=== PATIENT | female | born 1960 | race Caucasian/White ===

== ENCOUNTER 2016-12-24 18:04 | Inpatient (IN) | payer BC ==
[~2016-12-24] VITALS: Ht 177.8 cm; Wt 125.0 kg
[2016-12-24] MEDS ORDERED: CEFTRIAXONE 1 GM/50 ML (PMX) 50 ML IVPB STA (23:08)
[2016-12-24] MEDS ORDERED: AZITHROMYCIN 500MG/NS (PMX) 250 ML IV STA (23:08)
[2016-12-24] MEDS ORDERED: SOD CHLORIDE 0.9% 1,000 ML IV STA (23:08)
--- NOTE | 2016-12-24 23:56 | RADRPT ---
PROCEDURE: XR Chest. CLINICAL INDICATION: Dyspnea. TECHNIQUE: Single frontal view of the chest. COMPARISON: None. FINDINGS: Cardiomegaly. Left suprahilar air space disease represents pneumonia, likely within the left upper l obe. The right lung is clear. No signs of pleural fluid or pneumothorax are seen. The osseous struct ures and soft tissues are unremarkable. IMPRESSION: Left upper lobe pneumonia. RPTAT: [facility] Physician Suresh Date Time Electronically viewed and signed by Physician Suresh on 12/24/2016 23:56 RS/
[2016-12-25] MEDS ORDERED: SOD CHLORIDE 0.9% 1,000 ML IV SCH (00:51)
[2016-12-25] MEDS ORDERED: ONDANSETRON 4 MG INJ IV PRN ×2 (01:00→20:00)
--- NOTE | 2016-12-25 01:00 | ERA ---
ER Documentation Chief Complaint Date/Time DATE: 12/25/16 TIME: 00:51 Chief Complaint sent by Dr Gunter due to DX of pneumonia HPI He is a 56-year-old female who is sent by her primary care physician Dr. Swift sent for admission for pneumonia. Patient had a cough for a week and she is failed outpatient antibiotic therapy. She saw her doctor today who got a chest x-ray that showed left upper lobe pneumonia and she was sent here. She says she has had some subjective fevers. No shortness of breath chest pain or nausea vomiting no abdominal pain. ROS All systems reviewed and are negative except as per history of present illness. PMhx/Soc History of Surgery: No Anesthesia Reaction: No Hx Neurological Disorder: No Hx Respiratory Disorders: No Hx Cardiac Disorders: No Hx Psychiatric Problems: No Hx Miscellaneous Medical Probl: Yes (RHEUMATOID ARTHRITIS) Hx Alcohol Use: No Hx Substance Use: No Hx Tobacco Use: No Smoking Status: Unknown if ever smoked FmHx Family History: No coronary disease Physical Exam Vitals Vital Signs Date Time Temp Pulse Resp B/P Pulse Ox O2 Delivery O2 Flow Rate FiO2 12/24/16 19:45 103.9 12/24/16 18:38 102.9 96 20 148/70 96 Physical Exam Const: Well-developed, well-nourished Head: Atraumatic, normocephalic Eyes: Normal Conjunctiva, PERRLA, EOMI, normal sclera, no nystagmus ENT: Normal External Ears, Nose and Mouth, moist mucus membranes. Neck: Full range of motion. No meningismus, no lymphadenopathy. Resp: Clear to auscultation bilaterally, no wheezing, rhonchi, rales Cardio: Regular rate and rhythm, no murmurs, S1 S2 present Abd: Soft, non tender x 4, non distended. Normal bowel sounds, no guarding or rebound, no pulsitile abdominal masses or bruits Skin: No petechiae or rashes, no ecchymosis , no maculopapular rash Back: No midline or flank tenderness Ext: No cyanosis, or edema, FROM x 4, normal inspection, neurovascularly intact x 4 Neur: Awake and alert, STR 5/5 x 4, sensation intact x 4, no focal findings, cerebellum intact Psych: Normal Mood and Affect Result Diagram: 10/18/17 2310 10/18/17 2310 Results 24 hrs Laboratory Tests Test 12/24/16 23:10 White Blood Count 11.110^3/ul Red Blood Count 3.5810^6/ul Hemoglobin 11.1g/dl Hematocrit 33.3% Mean Corpuscular Volume 93.0fl Mean Corpuscular Hemoglobin 31.0pg Mean Corpuscular Hemoglobin Concent 33.3g/dl Red Cell Distribution Width 14.3% Platelet Count 55182^3/UL Mean Platelet Volume 10.7fl Neutrophils % 72.0% Lymphocytes % 13.0% Monocytes % 11.9% Eosinophils % 2.0% Basophils % 0.5% Nucleated Red Blood Cells % 0.0/100WBC Neutrophils # 8.010^3/ul Lymphocytes # 1.410^3/ul Monocytes # 1.310^3/ul Eosinophils # 0.210^3/ul Basophils # 0.110^3/ul Nucleated Red Blood Cells # 0.010^3/ul Sodium Level 138mmol/L Potassium Level 3.6mmol/L Chloride Level 105mmol/L Carbon Dioxide Level 24mmol/L Anion Gap 13 Blood Urea Nitrogen 15mg/dl Creatinine 0.89mg/dl Glucose Level 99mg/dl Calcium Level 8.4mg/dl Total Bilirubin 0.3mg/dl Direct Bilirubin 0.00mg/dl Indirect Bilirubin 0.3mg/dl Aspartate Amino Transf (AST/SGOT) 23IU/L Alanine Aminotransferase (ALT/SGPT) 30IU/L Alkaline Phosphatase 124IU/L Total Protein 7.1g/dl Albumin 3.0g/dl Globulin 4.10g/dl Albumin/Globulin Ratio 0.73 Current Medications Medications (Trade) Dose Ordered Sig/Kerrie Route PRN Reason Start Time Stop Time Status Last Admin Dose Admin Sodium Chloride 1,000 ml @ 1,000 mls/hr Q1H STAT IV 12/24/16 23:08 12/25/16 00:07 DC 12/24/16 23:38 Azithromycin 250 ml @ 250 mls/hr ONCE STAT IV 12/24/16 23:08 12/25/16 00:07 DC 12/25/16 00:24 Ceftriaxone Sodium (Rocephin) 50 ml @ 100 mls/hr ONCE STAT IVPB 12/24/16 23:08 12/24/16 23:37 DC 12/24/16 23:38 Procedures/MDM PROCEDURE: XR Chest. CLINICAL INDICATION: Dyspnea. TECHNIQUE: Single frontal view of the chest. COMPARISON: None. FINDINGS: Cardiomegaly. Left suprahilar air space disease represents pneumonia, likely within the left upper lobe. The right lung is clear. No signs of pleural fluid or pneumothorax are seen. The osseous structures and soft tissues are unremarkable. IMPRESSION: Left upper lobe pneumonia. RPTAT: [facility] Physician Suresh Date Time Electronically viewed and signed by Lupillo Chu Physician on 12/24/2016 23:56 RS/ CC: NIKIA MELTON DO Patient had blood cultures antibiotics given Rocephin and Zithromax IV. Spoke with primary will admit for failed outpatient therapy with left upper lobe pneumonia. The patient is not septic and does not appear subclinically whatsoever Departure Diagnosis: Primary Impression: Left upper lobe pneumonia Qualified Code: J18.1 - Pneumonia of left upper lobe due to infectious organism Condition: Stable NIKIA MELTON DO Dec 25, 2016 01:00
[2016-12-25] MEDS: ACETAMINOPHEN 325 MG TAB PO PRN ×3 (02:12→15:30)
[2016-12-25] MEDS ORDERED: MET25 PO (03:37)
[2016-12-25] MEDS ORDERED: ACET-141 PO (03:37)
[2016-12-25 17:06] VITALS: TEMP 101.7
[2016-12-25 17:50] VITALS: BP 133/65; PULSE 76; RESP 16
[2016-12-25 18:01] VITALS: Ht 177.8 cm; Wt 125.0 kg
[2016-12-25] MEDS ORDERED: AZIT500T5 PO (18:10)
[2016-12-25] MEDS ORDERED: MAGNESIUM HYDROXIDE 30ML CUP PO PRN (19:30)
[2016-12-25] MEDS ORDERED: ZOLPIDEM 5 MG TAB PO PRN (19:30)
[2016-12-25 20:41] VITALS: BP 149/71; RESP 19
[2016-12-25] MEDS ORDERED: CEFTRIAXONE 1 GM/50 ML (PMX) 50 ML IVPB SCH (23:00)
--- NOTE | 2016-12-26 01:33 | PN ---
DATE: 12/25/2016 SUBJECTIVE: The patient admitted today from the emergency room where she spent the last 18 hours. The patient admitted because of pneumonia. The patient had been given Rocephin IV and feels better now, but she still has a severe nonproductive cough. OBJECTIVE: VITAL SIGNS: Temperature 102.6, blood pressure 149/72, pulse 70, respiratory rate 19, pulse ox 98 o n room air. GENERAL: Examination of the patient today reveals her to be improved. She is alert and awake. HEART: Normal sinus rhythm. LUNGS: Clear to A and P. ABDOMEN: Liver, kidneys, spleen are not palpable. Bowel sounds are normal. No intraabdominal mass es or bruits. EXTREMITIES: No ankle edema. LABORATORY DATA: CBC: White blood cell count 11,100, hemoglobin 12.3, hematocrit 31.3%, platelet c ount is normal, differential is normal. Sodium 138, potassium 3.6, chloride 105, carbon dioxide 24, BUN 15, creatinine 0.89, glucose 99, calcium normal. Alkaline phosphatase elevated at 124. Albumi n 3, globulin 4.1. A/G ratio 0.73. None of the cultures are back yet but blood culture has been or dered, urine cultures have been ordered, and sputum cultures have been ordered. Chest x-ray reveals left upper lobe pneumonia. ASSESSMENT AND PLAN: The patient has rheumatoid arthritis and is on methotrexate; however, the meth otrexate has been discontinued until her infection becomes under control. The patient had a similar episode of pneumonia when she was a child. She appears to be improving now on her treatment which is Rocephin 1 gram IV daily, awaiting for cultures. The patient had one episode of nausea and vomi ting; however, she felt it was simply due to coughing and she was choked from her coughing. She michel s not feel nauseous at this time and is feeling no pain. Dictated By: SUSY DILLON/LU Conf#: [id number] DID#: [id number]
[2016-12-26 02:18] VITALS: BP 126/61; RESP 18
[2016-12-26] MEDS: ACETAMINOPHEN 325 MG TAB PO PRN ×4 (02:19→23:55)
[2016-12-26 08:00] VITALS: BP 131/70; RESP 19
[2016-12-26 15:15] VITALS: BP 127/78
--- NOTE | 2016-12-26 16:55 | RADRPT ---
Vent Rate: 58 bpm RR Interval: 0 msec MS Interval: 154 msec QRS Duration: 74 msec QT Interval: 430 msec QTC Interval: 422 msec P-R-T [place]: 62 - 50 - 72 degrees Sinus bradycardia Otherwise normal ECG Electronically Signed By: Curry Sood [id number]
--- NOTE | 2016-12-26 16:55 | RADRPT ---
Vent Rate: 58 bpm RR Interval: 0 msec IA Interval: 154 msec QRS Duration: 74 msec QT Interval: 430 msec QTC Interval: 422 msec P-R-T [place]: 62 - 50 - 72 degrees Sinus bradycardia Otherwise normal ECG Electronically Signed By: Curry Sood [id number]
--- NOTE | 2016-12-26 16:55 | RADRPT ---
Vent Rate: 58 bpm RR Interval: 0 msec OR Interval: 154 msec QRS Duration: 74 msec QT Interval: 430 msec QTC Interval: 422 msec P-R-T [place]: 62 - 50 - 72 degrees Sinus bradycardia Otherwise normal ECG Electronically Signed By: Curry Sood [id number]
[2016-12-26 17:44] VITALS: BP 124/75; RESP 18
--- NOTE | 2016-12-26 18:06 | RADRPT ---
PROCEDURE: XR Chest. CLINICAL INDICATION: Shortness of breath. TECHNIQUE: Single frontal view. COMPARISON: 12/24/2016. FINDINGS: There is air space disease in the left upper lobe consistent with pneumonia. A mass lesion at this s ite cannot be excluded. The right lung is clear. The heart is enlarged. There is no pleural effusion. There is no pneumothorax. IMPRESSION: 1. Unchanged left upper lobe pneumonia. 2. A left lung mass cannot be excluded. Correlation with CT scan of the chest should be considered. 3. Cardiomegaly. RPTAT: QQ .Bernardo Limon MD, MD Date Time Electronically viewed and signed by .Bernardo Limon MD, MD on 12/26/2016 18:05 .R/
[2016-12-26 20:02] VITALS: BP 131/78; RESP 20
--- NOTE | 2016-12-26 20:09 | HP ---
DATE OF ADMISSION: 12/25/2016 CHIEF COMPLAINT: Cough and fever with left anterior chest pain x10 days. HISTORY OF PRESENT ILLNESS: The patient was seen in the office on 12/19/2016 with complaint of coug h and fever and some chest pain in the left anterior chest. She was placed on Zithromax and given s ome cough medicine consisting of Phenergan with codeine. The patient called back on 12/24/2016 comp laining that she felt no better. By now she had been coughing for 2 weeks. She was seen in the off ice. She was febrile, running a fever over 101. Chest x-ray was performed and this revealed left u pper lobe pneumonia. The patient was then referred to the hospital and was seen in the emergency ro om of [facility] and admitted. FAMILY HISTORY: Mother of carcinoma of the lung and brain at age 59. Father at 82 of ang iodysplasia of the colon. The patient has 1 brother and 1 sister, both of whom are alive and well. Mother had brain carcinoma and carcinoma of the lung. No other history in the family of carc inoma. No family history of tuberculosis or diabetes mellitus. SOCIAL HISTORY: The patient does not smoke and uses alcoholic beverages very moderately. PAST HISTORY: Serious accidents: None. Serious illnesses: The patient has rheumatoid arthritis for which she is being treated by her adjunct psychology faculty member with methotrexate and folic acid. PREVIOUS SURGERIES: None. DRUGS AND MEDICATIONS: 1. Methotrexate. 2. Folic acid. ALLERGIES: NO KNOWN DRUG ALLERGIES. REVIEW OF SYSTEMS: CARDIOVASCULAR: No history of hypertension. No history of congenital heart disease, rheumatic feve r, valvular heart disease, arrhythmia, coronary insufficiency, myocardial infarction, or angina pect maria dolores. RESPIRATORY: The patient presents with pneumonia. She also had pneumonia at age 7. No history of tuberculosis or asthma. GASTROINTESTINAL: No history of peptic ulcer disease, cholecystitis, hepatitis, jaundice, pancreati tis, ileitis, colitis, hematemesis, or melena. MUSCULOSKELETAL: The patient has had several fractured toes, but no other broken bones; however, sh kody does have rheumatoid arthritis for which he is being treated with methotrexate. NEUROLOGICAL: No history of epilepsy, convulsion or CVA. No history of emotional disorder. GENITOURINARY: No history of cystitis, glomerulonephritis, pyelonephritis, or other genital tract d isorder. PHYSICAL EXAMINATION: GENERAL: The patient is a well-developed, slightly obese white female who appears to be acutely ill . VITAL SIGNS: Blood pressure 147/82, pulse 90, respirations 16, temperature 101.8. SKIN: No evidence of dermatitis. NECK: Supple. Thyroid is not palpable. HEENT: Head is symmetrical with no evidence of injury or deformity. Ears, nose and throat: Nasal and pharyngeal mucosa is red. Ears are clear. Eyes: PERRLA, EOM normal. Disks flat. Peripheral and forward vision grossly intact. Ears, nose and throat as described previously. HEART: PMI left fifth interspace, left midclavicular line. No murmurs, no thrills, no bruits. A2 is greater than P2. No distention of jugular veins. No ankle edema. Hepatojugular reflux is not p resent. CHEST: Clear to A and P. ABDOMEN: Liver, kidneys, and spleen are not palpable. Bowel sounds are normal. There are no intra abdominal masses or bruits. GENITOURINARY, PELVIC AND RECTAL: Deferred. The patient had pelvic and rectal February 2016 with n egative result. MUSCULOSKELETAL: No evidence of deformity or injury to the musculoskeletal system. NEUROLOGIC: DTRs are normal and equal bilaterally including biceps, triceps, wrists, knees, and ank les. Plantars are flexor and no pathological reflexes are present. The patient is well oriented to time, place, and person. PERIPHERAL VASCULAR: No carotid or subclavian artery bruits. Femoral and dorsal pedal pulses are n ormal and equal bilaterally. LYMPHATICS: No evidence of lymphadenopathy. IMPRESSION: 1. Left upper lobe pneumonia. 2. Rheumatoid arthritis, being treated with methotrexate. 3. Fever. 4. History of renal insufficiency. 5. Fibrocystic disease of both breasts. Dictated By: SUSY DILLON/LU Conf#: [id number] DID#: [id number]
[2016-12-26] MEDS: CEFEPIME 1GM/50 ML (PMX) 50 ML IVPB SCH (20:53)
[2016-12-26] MEDS: PROMETHAZINE/CODEINE 5ML CUP PO PRN (23:58)
[2016-12-27] MEDS ORDERED: BARIUM SULF 2% 450 ML BTL (BERRY SMOOTHIE) PO ONE (01:30)
[2016-12-27 02:16] VITALS: BP 118/77; RESP 18
--- NOTE | 2016-12-27 02:19 | CONS ---
DATE OF ADMISSION: 12/25/2016 DATE OF CONSULTATION: 12/26/2016 TYPE OF CONSULTATION: Infectious Disease. REASON FOR CONSULTATION: Antibiotic management. HISTORY OF PRESENT ILLNESS: Mary Lou Azevedo is a 56-year-old female, a patient of Dr. Leonel tinsley who has been sick for the last 2 weeks. She had a cough for a week and then came to see Dr. Dionna bernal last Thursday; he put her on Z-Luis Angel for 5 days, but when she came back to see him on the to get a chest x-ray it showed left upper lobe pneumonia and she was sent in to the hospital for evalu ation. PAST PROBLEMS INCLUDE: Rheumatoid arthritis. VITAL SIGNS: On admission, her temperature was 103.9, white count was 11.1, H and H of 11.1 and 33. 3, platelet count 318,000. BUN and creatinine 15/0.89. PAST MEDICAL HISTORY: Operations: None. FAMILY HISTORY: Noncontributory. SOCIAL HISTORY: She does not smoke, drink or abuse drugs. ALLERGIES: NONE TO PENICILLIN, SULFA OR FOODS. MEDICATIONS: Per chart. REVIEW OF SYSTEMS: As per HPI. PHYSICAL EXAMINATION: GENERAL: The patient is a well-developed, well-nourished female who is alert, responsive, in no acu te distress. VITAL SIGNS: Stable. Her T-max was 103.9, she currently is febrile to 102.5 and was 102.6 yesterda y as well as 103.9 on the . SKIN: Without generalized rash. HEENT: Within normal limits. NECK: Supple. LYMPH NODES: None palpable. CHEST: Decreased breath sounds at the bases. HEART: Without murmur or gallop. ABDOMEN: Soft and nontender, without organosplenomegaly or masses. EXTREMITIES: Without cyanosis, clubbing, or edema. RECTAL AND GENITAL: Exam is deferred. NEUROLOGICAL: No focal neurological abnormality. IMPRESSION AND PLAN: Patient had blood cultures x4. She has had an MRSA screen, respiratory cultur e, urine culture, AFB culture and smear. I do not believe this is AFB; I believe it is a pneumoniti s, maybe aspiration. Blood cultures negative. Urine cultures are negative so far. I am going to s witch her over to cefepime a gram q.12. I will dictate my findings to Dr. Mayfield. Dictated By: LUIZ BARAHONA MD, JD/LU Conf#: [id number] DID#: [id number]
--- NOTE | 2016-12-27 03:38 | PN ---
DATE: 12/26/2016 SUBJECTIVE: The patient is alert and awake. She feels somewhat better; however, she is still runni ng a fever of 102. EARS, NOSE AND THROAT: Clear. LUNGS: Clear to A and P. HEART: Normal sinus rhythm. No murmur, no enlargement. ABDOMEN: Liver, kidneys, spleen are not palpable. Bowel sounds are normal. The patient is no long er nauseated or vomiting. There was no ankle edema. There is no nuchal rigidity; however, the patient continues to have fevers going from just barely ab ove normal to 102. This patient was on a trip to the [facility] and out of the country in October. T he possibility of some exotic disease must be entertained but since she has not responded to antibio tics in over a week, we shall obtain a thick and thin smear for falciparum malaria although this is highly unlikely. VITAL SIGNS: Temperature today went from 98.8 to 102. Blood pressure is 124/75. Pulse is 68. Res piratory rate is 18. Pulse ox is 99% on room air. DIAGNOSTIC DATA: White blood cell count is 9200, hemoglobin is 10.4, hematocrit is 31.9%, platelet count is normal, neutrophils 69.6%, lymphocytes at 13.6%, monocytes elevated at 1.3%. Sed rate is 7 9 mm/hr. Electrolytes revealed a sodium of 139, potassium 4.1, chloride 106, carbon dioxide 23, BUN 14, creatinine 0.95. Calcium is 8.1 uncorrected. Liver function tests are normal; however, A/G ra rodolfo is reversed. Albumin is 2.9, globulin is 3.6. The possibility of multiple myeloma is entertained and a serum protein electrophoresis will be obtai isidro. Her cholesterol was low at 72. Thyroid is normal. Urine shows a trace of ketones and is othe rwise negative. TB skin test is pending. Urine culture shows no growth after 24 hours. Blood cult ure shows no growth after 24 hours x2. IMAGING: Repeat chest x-ray today reveals unchanged left upper lobe pneumonia. A left lung mass ca nnot be excluded. Correlation with CT scan of the chest should be considered and will be ordered. The patient also has cardiomegaly. Dr. Vargas will see the patient in infectious diseases consultation. Dictated By: SUSY DILLON/LU Conf#: [id number] [facility]#: [id number]
[2016-12-27] MEDS: CIPROFLOXACIN 500 MG TAB PO SCH ×2 (05:38→18:09)
[2016-12-27 08:00] VITALS: BP 136/69; RESP 19
[2016-12-27] MEDS: CEFEPIME 1GM/50 ML (PMX) 50 ML IVPB SCH ×2 (09:51→20:48)
[2016-12-27] MEDS: ACETAMINOPHEN 325 MG TAB PO PRN ×2 (11:04→20:47)
--- NOTE | 2016-12-27 12:28 | PN ---
Date/Time of Note Date/Time of Note DATE: 12/27/16 TIME: 12:19 Assessment/Plan VTE Prophylaxis VTE Prophylaxis Intervention: ambulation Lines/Catheters IV [facility] Saline Lock Urinary Cath still in place: No Assessment/Plan Assessment/Plan CLOTILDE pneumonia. r/o mass cxr cannot r/o mass so ct pending today. pt on iv abx and cont to have tempt. ppd placed. ID following. will start xopenex hhn . anemia-fe deficient. will start fe. Subjective 24 Hr Interval Summary Free Text/Dictation febrile during the night max 101.8. pt feeling good today. awake and alert. Exam/Review of Systems Vital Signs Vitals Vital Signs Date Time Temp Pulse Resp B/P Pulse Ox O2 Delivery O2 Flow Rate FiO2 12/27/16 08:00 100.3 69 19 136/69 90 12/26/16 17:44 Room Air 12/25/16 17:06 2.0 Intake and Output 12/26/16 12/26/16 12/27/16 15:00 23:00 07:00 Intake Total 730 ml 350 ml Balance 730 ml 350 ml Exam lungs cta Results Result Diagram: 12/27/16 0540 12/26/16 0526 Results 24 hrs Laboratory Tests Test 12/27/16 05:39 12/27/16 05:40 12/27/16 05:41 Iron Level 16 L Total Iron Binding Capacity 189 L Percent Iron Saturation 8 L White Blood Count 7.5 Red Blood Count 3.56 L Hemoglobin 10.7 L Hematocrit 33.1 L Mean Corpuscular Volume 93.0 Mean Corpuscular Hemoglobin 30.1 Mean Corpuscular Hemoglobin Concent 32.3 Red Cell Distribution Width 14.2 Platelet Count 310 Mean Platelet Volume 10.7 H Neutrophils % 63.7 Lymphocytes % 17.9 Monocytes % 14.0 H Eosinophils % 2.9 Basophils % 0.7 Nucleated Red Blood Cells % 0.0 Neutrophils # 4.8 Lymphocytes # 1.3 Monocytes # 1.1 H Eosinophils # 0.2 Basophils # 0.1 Nucleated Red Blood Cells # 0.0 Ferritin 357.0 H Vitamin B12 Level 353 Absolute Reticulocyte Count 0.032 Percent Reticulocyte Count 0.9 Medications Medications Current Medications Acetaminophen (Tylenol Tab) 650 mg Q4H PRN PO PAIN AND OR ELEVATED TEMP Last administered on 12/27/16 11:04; Admin Dose 650 MG; Start 12/25/16 at 19:30 Zolpidem Tartrate (Ambien) 10 mg HS PRN PO INSOMNIA; Start 12/25/16 at 19:30 Magnesium Hydroxide (Milk Of Mag) 30 ml DAILY PRN PO CONSTIPATION; Start 12/25 at 19:30 Promethazine HCl/ Codeine (Phenergan/ Codeine) 5 ml Q4H PRN PO COUGH Last administered on 12/26/16 23:58; Admin Dose 5 ML; Start 12/25/16 at 19:30 Ondansetron HCl (Zofran Inj) 4 mg Q4H PRN IV NAUSEA AND/OR VOMITING Last administered on 12/25/16 20:55; Admin Dose 4 MG; Start 12/25/16 at 20:00 Clonidine 0.1 mg 0.1 mg Q4H PRN NGT SBP>160 or DBP>90 Last administered on 16:12; Admin Dose 0.1 MG; Start 12/26/16 at 16:00 Cefepime HCl (Maxipime 1gm/50 ml (Pmx)) 50 ml @ 100 mls/hr Q12 IVPB Last administered on 12/27/16 09:51; Admin Dose 100 MLS/HR; Start 12/26/16 at 21: 00 Ciprofloxacin (Cipro) 500 mg BID@06,18 PO Last administered on 12/27/16 05:38 ; Admin Dose 500 MG; Start 12/27/16 at 06:00; Stop 01/05/17 at 05:59 FARIBA OSEGUERA MD Dec 27, 2016 12:28
--- NOTE | 2016-12-27 13:12 | CONS ---
Date/Time of Note Date/Time of Note DATE: 12/27/16 TIME: 13:09 Assessment/Plan Assessment/Plan Additional Assessment/Plan CLOTILDE PNA R/O TB ATYPICAL PLEURITIC CHEST PAIN -continue abx -TB work up -very atypical chest pain and unlikely cardaic -will cehck echo Consultation Date/Type/Reason Admit Date/Time Dec 25, 2016 at 00:51 Hx of Present Illness He is a 56-year-old female who is sent by her primary care physician Dr. Swift sent for admission for pneumonia. Patient had a cough for a week and she is failed outpatient antibiotic therapy. She saw her doctor today who got a chest x-ray that showed left upper lobe pneumonia and she was sent here. She says she has had some subjective fevers. No shortness of breathor nausea vomiting no abdominal pain. She had some chest pain that was somehwat pleruitic, no exertional symtpmos and hemodyncmiallcly stable Social History Smoking Status: Never smoker Exam/Review of Systems Vital Signs Vitals Vital Signs Date Time Temp Pulse Resp B/P Pulse Ox O2 Delivery O2 Flow Rate FiO2 12/27/16 08:00 100.3 69 19 136/69 90 12/26/16 17:44 Room Air 12/25/16 17:06 2.0 Intake and Output 12/26/16 12/26/16 12/27/16 15:00 23:00 07:00 Intake Total 730 ml 350 ml Balance 730 ml 350 ml Results Result Diagram: 12/27/16 0540 12/26/16 0526 Results 24 hrs Laboratory Tests Test 12/27/16 05:39 12/27/16 05:40 12/27/16 05:41 Iron Level 16 L Total Iron Binding Capacity 189 L Percent Iron Saturation 8 L White Blood Count 7.5 Red Blood Count 3.56 L Hemoglobin 10.7 L Hematocrit 33.1 L Mean Corpuscular Volume 93.0 Mean Corpuscular Hemoglobin 30.1 Mean Corpuscular Hemoglobin Concent 32.3 Red Cell Distribution Width 14.2 Platelet Count 310 Mean Platelet Volume 10.7 H Neutrophils % 63.7 Lymphocytes % 17.9 Monocytes % 14.0 H Eosinophils % 2.9 Basophils % 0.7 Nucleated Red Blood Cells % 0.0 Neutrophils # 4.8 Lymphocytes # 1.3 Monocytes # 1.1 H Eosinophils # 0.2 Basophils # 0.1 Nucleated Red Blood Cells # 0.0 Ferritin 357.0 H Vitamin B12 Level 353 Absolute Reticulocyte Count 0.032 Percent Reticulocyte Count 0.9 Medications Medications Current Medications Acetaminophen (Tylenol Tab) 650 mg Q4H PRN PO PAIN AND OR ELEVATED TEMP Last administered on 12/27/16 11:04; Admin Dose 650 MG; Start 12/25/16 at 19:30 Zolpidem Tartrate (Ambien) 10 mg HS PRN PO INSOMNIA; Start 12/25/16 at 19:30 Magnesium Hydroxide (Milk Of Mag) 30 ml DAILY PRN PO CONSTIPATION; Start 12/25 at 19:30 Promethazine HCl/ Codeine (Phenergan/ Codeine) 5 ml Q4H PRN PO COUGH Last administered on 12/26/16 23:58; Admin Dose 5 ML; Start 12/25/16 at 19:30 Ondansetron HCl (Zofran Inj) 4 mg Q4H PRN IV NAUSEA AND/OR VOMITING Last administered on 12/25/16 20:55; Admin Dose 4 MG; Start 12/25/16 at 20:00 Clonidine 0.1 mg 0.1 mg Q4H PRN NGT SBP>160 or DBP>90 Last administered on 16:12; Admin Dose 0.1 MG; Start 12/26/16 at 16:00 Cefepime HCl (Maxipime 1gm/50 ml (Pmx)) 50 ml @ 100 mls/hr Q12 IVPB Last administered on 12/27/16 09:51; Admin Dose 100 MLS/HR; Start 12/26/16 at 21: 00 Ciprofloxacin (Cipro) 500 mg BID@06,18 PO Last administered on 12/27/16 05:38 ; Admin Dose 500 MG; Start 12/27/16 at 06:00; Stop 01/05/17 at 05:59 Ferrous Sulfate (Feosol Liquid Cup) 150 mg DAILY PO ; Start 12/27/16 at 12:30 STEVE HANNA MD Dec 27, 2016 13:12
[2016-12-27] MEDS: FERROUS SULFATE 60 MG/ML 5ML CUP PO SCH (13:20)
[2016-12-27 14:00] VITALS: BP 113/67; RESP 18
[2016-12-27] MEDS: LEVALBUTEROL (NEB) 0.31 MG/3 ML AMP HHN SCH ×2 (14:14→20:35)
--- NOTE | 2016-12-27 20:04 | RADRPT ---
PROCEDURE: CT Chest without contrast. CLINICAL INDICATION: Shortness of breath. History of left upper lobe pneumonia. Possible mass at t his site. TECHNIQUE: Helical axial sections were obtained through the chest without intravenous contrast enh ancement. Coronal and sagittal reformatted images were obtained from the axial source images. Total exam DLP is 606.47 mGy-cm. CTDIvol is 16.00 mGy. One or more of the following dose reduction yovani hniques were used: Automated exposure control, adjustment of the mA and/or kV according to patient s ize, use of iterative reconstruction technique. COMPARISON: Chest x-ray dated 12/26/2016. FINDINGS: There is dense consolidation in the left upper lobe anteriorly with no air bronchograms indicating a possible mass at this site measuring 6.5 x 6.2 cm in AP and transverse dimensions. There is adjacen t patchy consolidation of the left upper lobe consistent with pneumonia. There are small regions of bronchiolitis in the right upper lobe laterally and right lung base as well as the left lower lobe s uperiorly and posteriorly. There is no pulmonary nodule or mass lesion. There is left middle mediastinal lymphadenopathy adjacent to the left main pulmonary artery measurin g 2.1 x 1.3 cm. There is no other mediastinal or hilar lymphadenopathy or mass. There is no axillary, supraclavicular, or internal mammary lymphadenopathy. The thoracic aorta is not dilated. The heart size is normal. There is no right pleural effusion. There is a very small left pleural effusion. There is no pericar dial effusion. Images through the upper abdomen demonstrate normal visualized portions of the liver, spleen, and ad renals. There are degenerative changes of the spine. There is no fracture or lytic lesion. IMPRESSION: 1. Possible mass in the left upper lobe anteriorly measuring 6.5 x 6.2 cm. Correlation with broncho scopy should be considered. 2. Patchy consolidation in the left upper lobe consistent with pneumonia. 3. Small regions of bronchiolitis bilaterally. 4. Left middle mediastinal lymphadenopathy measuring 2.1 x 1.3 cm, reactive or neoplastic. 5. Very small left pleural effusion. 6. Degenerative changes of the spine. RPTAT: QQ .Bernardo Limon MD, Date Time Electronically viewed and signed by .Bernardo Limon MD, on 12/27/2016 20:04 .R/
[2016-12-27 20:24] VITALS: BP 131/88; RESP 18
--- NOTE | 2016-12-27 21:52 | CONS ---
Date/Time of Note Date/Time of Note DATE: 12/27/16 TIME: 21:46 Consult Date/Type/Reason Admit Date/Time Dec 25, 2016 at 00:51 Initial Consult Date Type of Consultation: ID Objective Vital Signs Date Time Temp Pulse Resp B/P Pulse Ox O2 Delivery O2 Flow Rate FiO2 12/27/16 20:36 76 18 94 21 12/27/16 20:24 100.2 131/88 12/26/16 17:44 Room Air 12/25/16 17:06 2.0 Intake and Output 12/26/16 12/26/16 12/27/16 15:00 23:00 07:00 Intake Total 730 ml 350 ml Balance 730 ml 350 ml Results/Medications Result Diagram: 12/27/16 0540 12/26/16 0526 Results 24 hrs Laboratory Tests Test 12/27/16 05:39 12/27/16 05:40 12/27/16 05:41 Iron Level 16 L Total Iron Binding Capacity 189 L Percent Iron Saturation 8 L White Blood Count 7.5 Red Blood Count 3.56 L Hemoglobin 10.7 L Hematocrit 33.1 L Mean Corpuscular Volume 93.0 Mean Corpuscular Hemoglobin 30.1 Mean Corpuscular Hemoglobin Concent 32.3 Red Cell Distribution Width 14.2 Platelet Count 310 Mean Platelet Volume 10.7 H Neutrophils % 63.7 Lymphocytes % 17.9 Monocytes % 14.0 H Eosinophils % 2.9 Basophils % 0.7 Nucleated Red Blood Cells % 0.0 Neutrophils # 4.8 Lymphocytes # 1.3 Monocytes # 1.1 H Eosinophils # 0.2 Basophils # 0.1 Nucleated Red Blood Cells # 0.0 Ferritin 357.0 H Vitamin B12 Level 353 Absolute Reticulocyte Count 0.032 Percent Reticulocyte Count 0.9 Medications Current Medications Acetaminophen (Tylenol Tab) 650 mg Q4H PRN PO PAIN AND OR ELEVATED TEMP Last administered on 12/27/16t 20:47; Admin Dose 650 MG; Start 12/25/16 at 19:30 Zolpidem Tartrate (Ambien) 10 mg HS PRN PO INSOMNIA; Start 12/25/16 at 19:30 Magnesium Hydroxide (Milk Of Mag) 30 ml DAILY PRN PO CONSTIPATION; Start 12/25 at 19:30 Promethazine HCl/ Codeine (Phenergan/ Codeine) 5 ml Q4H PRN PO COUGH Last administered on 12/26/16 23:58; Admin Dose 5 ML; Start 12/25/16 at 19:30 Ondansetron HCl (Zofran Inj) 4 mg Q4H PRN IV NAUSEA AND/OR VOMITING Last administered on 12/25/16 20:55; Admin Dose 4 MG; Start 12/25/16 at 20:00 Clonidine 0.1 mg 0.1 mg Q4H PRN NGT SBP>160 or DBP>90 Last administered on 16:12; Admin Dose 0.1 MG; Start 12/26/16 at 16:00 Cefepime HCl (Maxipime 1gm/50 ml (Pmx)) 50 ml @ 100 mls/hr Q12 IVPB Last administered on 12/27/16 20:48; Admin Dose 100 MLS/HR; Start 12/26/16 at 21: 00 Ciprofloxacin (Cipro) 500 mg BID@06,18 PO Last administered on 12/27/16 18:09 ; Admin Dose 500 MG; Start 12/27/16 at 06:00; Stop 01/05/17 at 05:59 Ferrous Sulfate (Feosol Liquid Cup) 150 mg DAILY PO Last administered on 13:20; Admin Dose 150 MG; Start 12/27/16 at 12:30 Assessment/Plan Chief Complaint/Hosp Course Alert, feels good, no fevers AbxL Cefepime, Cipro GENERAL: The patient is a well-developed, well-nourished female who is alert, responsive, in no acute distress. SKIN: Without generalized rash. HEENT: Within normal limits. NECK: Supple. LYMPH NODES: None palpable. CHEST: Decreased breath sounds at the bases. HEART: Without murmur or gallop. ABDOMEN: Soft and nontender, without organosplenomegaly or masses. EXTREMITIES: Without cyanosis, clubbing, or edema. NEUROLOGICAL: No focal neurological abnormality. Assessment: 1. PNA 2. ?L upper lobe mass per CT 3. RA 4. Anemia Plan: Clinically stable, continue Cefepime, dc Cipro, consider pulmonary eval ? bronch DW staff Problems: PARAM LEON NP Dec 27, 2016 21:52
[2016-12-28] MEDS: ACETAMINOPHEN 325 MG TAB PO PRN ×2 (00:54→09:08)
[2016-12-28] MEDS: PROMETHAZINE/CODEINE 5ML CUP PO PRN (00:54)
[2016-12-28 02:07] VITALS: BP 121/70; RESP 18
[2016-12-28 07:43] VITALS: BP 125/79; RESP 19
[2016-12-28] MEDS: LEVALBUTEROL (NEB) 0.31 MG/3 ML AMP HHN SCH ×2 (08:31→19:58)
[2016-12-28] MEDS ORDERED: FERROUS GLUCONATE (EC) 325 MG TAB PO SCH (09:00)
[2016-12-28] MEDS: FERROUS SULFATE 60 MG/ML 5ML CUP PO SCH (09:08)
[2016-12-28] MEDS: CEFEPIME 1GM/50 ML (PMX) 50 ML IVPB SCH ×2 (09:08→21:19)
--- NOTE | 2016-12-28 10:31 | RADRPT ---
Echocardiogram Report Patient Name: DEONDRE BOYKIN Gender: Female Date: 1960 Study Date: 27-Dec-2016 Assistant Financial Accountant: BLANCA Location: 2257 Ref. Physician: STEVE HANNA Quality: Good Procedures: Transthoracic echocardiogram with complete 2D, M-Mode, and doppler examination. Indications: Chest Pain. 2D/M Mode Doppler Measurement Value Normal Ranges Measurement Value Normal Ranges AoR Diam MM 3.2 cm JING Vmax 2.0 cm2 ACS MM 2.0 cm JING VTI 2.0 cm2 LA/Ao MM 1.1 AV Peak Tyrel 1.4 m/sec LA Dimen MM 3.4 cm AV Peak PG 8.2 mmHg LVIDd 2D 5.0 3.5 - 5.6 cm LVOT Peak Tyrle 1.0 m/sec LVIDs 2D 3.4 2.1 - 4.1 cm LVOT Peak PG 3.7 mmHg LVPWd 2D 1.1 0.6 - 1.1 cm MV E Peak Tyrel 0.5 m/sec IVSd 2D 1.1 0.6 - 1.1 cm MV A Peak Tyrel 0.7 m/sec EDV 2D 117.5 cm3 MV E/A 0.7 ESV 2D 39.0 cm3 MV Decel Time 321 msec EF 2D 60.0 50.0 - 65.0 % MV Decel [place] 2 LVOT Diam 2.0 cm MV E/A 0.7 TR Peak Tyrel 2.4 m/sec TR Peak PG 22.8 mmHg RVSP 26.0 mmHg RA Pressure 3.0 Findings Left Ventricle: Normal left ventricular systolic function. Normal left ventricular cavity size. Normal left ventricular wall thickness. Ejection fraction is visually estimated at 60 %. Right Ventricle: Normal right ventricular size. Normal right ventricular systolic function. Left Atrium: The left atrium is normal in size. Right Atrium: The right atrium is normal in size. Atrial Septum: Not well visualized. Mitral Valve: Normal appearance of the mitral valve. Normal appearance and function of the mitral valve with trace physiologic regurgitation. Aortic Valve: Normal appearance of the aortic valve. No significant aortic stenosis or insufficiency. Normal trileaflet aortic valve structure. Tricuspid Valve: Normal appearance of the tricuspid valve. Normal appearance and function of the tricuspid valve with trace physiologic regurgitation. Normal right ventricular systolic pressure. Estimated peak PA systolic pressure 26 mmHg. Pulmonic Valve: Normal pulmonic valve appearance. There is trace pulmonic regurgitation. Pericardium: Normal pericardium with no significant pericardial effusion. Aorta: Normal aortic root. IVC: The IVC is not well visualized due to body habitus. Conclusions 1.Normal appearance of the tricuspid valve. Normal appearance and function of the tricuspid valve with trace physiologic regurgitation. Normal right ventricular systolic pressure. Estimated peak PA systolic pressure 26 mmHg. 2.Normal left ventricular systolic function. Normal left ventricular cavity size. Normal left ventricular wall thickness. Ejection fraction is visually estimated at 60 %. 3.Normal right ventricular size. Normal right ventricular systolic function. Electronically Signed By: Lee Encinas 28-Dec-2016 10:30:14 -0700 Patient Name: DEONDRE BOYKIN Study Date: 27-Dec-2016 [id number]
--- NOTE | 2016-12-28 10:31 | RADRPT ---
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 Physician: STEVE HANNA Quality: Good Procedures: Transthoracic echocardiogram with complete 2D, M-Mode, and doppler examination. Indications: Chest Pain. 2D/M Mode Doppler Measurement Value Normal Ranges Measurement Value Normal Ranges AoR Diam MM 3.2 cm JING Vmax 2.0 cm2 ACS MM 2.0 cm JING VTI 2.0 cm2 LA/Ao MM 1.1 AV Peak Tyrel 1.4 m/sec LA Dimen MM 3.4 cm AV Peak PG 8.2 mmHg LVIDd 2D 5.0 3.5 - 5.6 cm LVOT Peak Tyrel 1.0 m/sec LVIDs 2D 3.4 2.1 - 4.1 cm LVOT Peak PG 3.7 mmHg LVPWd 2D 1.1 0.6 - 1.1 cm MV E Peak Tyrel 0.5 m/sec IVSd 2D 1.1 0.6 - 1.1 cm MV A Peak Tyrel 0.7 m/sec EDV 2D 117.5 cm3 MV E/A 0.7 ESV 2D 39.0 cm3 MV Decel Time 321 msec EF 2D 60.0 50.0 - 65.0 % MV Decel [place] 2 LVOT Diam 2.0 cm MV E/A 0.7 TR Peak Tyrel 2.4 m/sec TR Peak PG 22.8 mmHg RVSP 26.0 mmHg RA Pressure 3.0 Findings Left Ventricle: Normal left ventricular systolic function. Normal left ventricular cavity size. Normal left ventricular wall thickness. Ejection fraction is visually estimated at 60 %. Right Ventricle: Normal right ventricular size. Normal right ventricular systolic function. Left Atrium: The left atrium is normal in size. Right Atrium: The right atrium is normal in size. Atrial Septum: Not well visualized. Mitral Valve: Normal appearance of the mitral valve. Normal appearance and function of the mitral valve with trace physiologic regurgitation. Aortic Valve: Normal appearance of the aortic valve. No significant aortic stenosis or insufficiency. Normal trileaflet aortic valve structure. Tricuspid Valve: Normal appearance of the tricuspid valve. Normal appearance and function of the tricuspid valve with trace physiologic regurgitation. Normal right ventricular systolic pressure. Estimated peak PA systolic pressure 26 mmHg. Pulmonic Valve: Normal pulmonic valve appearance. There is trace pulmonic regurgitation. Pericardium: Normal pericardium with no significant pericardial effusion. Aorta: Normal aortic root. IVC: The IVC is not well visualized due to body habitus. Conclusions 1.Normal appearance of the tricuspid valve. Normal appearance and function of the tricuspid valve with trace physiologic regurgitation. Normal right ventricular systolic pressure. Estimated peak PA systolic pressure 26 mmHg. 2.Normal left ventricular systolic function. Normal left ventricular cavity size. Normal left ventricular wall thickness. Ejection fraction is visually estimated at 60 %. 3.Normal right ventricular size. Normal right ventricular systolic function. Electronically Signed By: Lee Encinas 28-Dec-2016 10:30:14 -0700 Patient Name: DEONDRE BOYKIN Study Date: 27-Dec-2016 [id number]
--- NOTE | 2016-12-28 10:31 | RADRPT ---
Echocardiogram Report Patient Name: DEONDRE BOYKIN Gender: Female Date: 1960 Study Date: 27-Dec-2016 Magistrate Assistant: BLANCA Location: 2257 Ref. Physician: STEVE HANNA Quality: Good Procedures: Transthoracic echocardiogram with complete 2D, M-Mode, and doppler examination. Indications: Chest Pain. 2D/M Mode Doppler Measurement Value Normal Ranges Measurement Value Normal Ranges AoR Diam MM 3.2 cm JING Vmax 2.0 cm2 ACS MM 2.0 cm JING VTI 2.0 cm2 LA/Ao MM 1.1 AV Peak Tyrel 1.4 m/sec LA Dimen MM 3.4 cm AV Peak PG 8.2 mmHg LVIDd 2D 5.0 3.5 - 5.6 cm LVOT Peak Tyrel 1.0 m/sec LVIDs 2D 3.4 2.1 - 4.1 cm LVOT Peak PG 3.7 mmHg LVPWd 2D 1.1 0.6 - 1.1 cm MV E Peak Tyrel 0.5 m/sec IVSd 2D 1.1 0.6 - 1.1 cm MV A Peak Tyrel 0.7 m/sec EDV 2D 117.5 cm3 MV E/A 0.7 ESV 2D 39.0 cm3 MV Decel Time 321 msec EF 2D 60.0 50.0 - 65.0 % MV Decel [place] 2 LVOT Diam 2.0 cm MV E/A 0.7 TR Peak Tyrel 2.4 m/sec TR Peak PG 22.8 mmHg RVSP 26.0 mmHg RA Pressure 3.0 Findings Left Ventricle: Normal left ventricular systolic function. Normal left ventricular cavity size. Normal left ventricular wall thickness. Ejection fraction is visually estimated at 60 %. Right Ventricle: Normal right ventricular size. Normal right ventricular systolic function. Left Atrium: The left atrium is normal in size. Right Atrium: The right atrium is normal in size. Atrial Septum: Not well visualized. Mitral Valve: Normal appearance of the mitral valve. Normal appearance and function of the mitral valve with trace physiologic regurgitation. Aortic Valve: Normal appearance of the aortic valve. No significant aortic stenosis or insufficiency. Normal trileaflet aortic valve structure. Tricuspid Valve: Normal appearance of the tricuspid valve. Normal appearance and function of the tricuspid valve with trace physiologic regurgitation. Normal right ventricular systolic pressure. Estimated peak PA systolic pressure 26 mmHg. Pulmonic Valve: Normal pulmonic valve appearance. There is trace pulmonic regurgitation. Pericardium: Normal pericardium with no significant pericardial effusion. Aorta: Normal aortic root. IVC: The IVC is not well visualized due to body habitus. Conclusions 1.Normal appearance of the tricuspid valve. Normal appearance and function of the tricuspid valve with trace physiologic regurgitation. Normal right ventricular systolic pressure. Estimated peak PA systolic pressure 26 mmHg. 2.Normal left ventricular systolic function. Normal left ventricular cavity size. Normal left ventricular wall thickness. Ejection fraction is visually estimated at 60 %. 3.Normal right ventricular size. Normal right ventricular systolic function. Electronically Signed By: Lee Encinas 28-Dec-2016 10:30:14 -0700 Patient Name: DEONDRE BOYKIN Study Date: 27-Dec-2016 [id number]
--- NOTE | 2016-12-28 11:38 | PN ---
Date/Time of Note Date/Time of Note DATE: 12/28/16 TIME: 11:35 Assessment/Plan VTE Prophylaxis VTE Prophylaxis Intervention: ambulation Lines/Catheters IV [facility]ter Type (from [email or web address] Saline Lock Urinary Cath still in place: No Assessment/Plan Assessment/Plan CLOTILDE pneumonia. r/o mass cxr cannot r/o mass so ct pending today. pt on day # 2 cefepime and cont to have tempt. ppd placed. ID following. will start xopenex hhn . ---ct show CLOTILDE pneumonia with mediastinal LN's and possible mass. will consult pulm for eval. pt still having high fevers. anemia-fe deficient. will start fe. Exam/Review of Systems Vital Signs Vitals Vital Signs Date Time Temp Pulse Resp B/P Pulse Ox O2 Delivery O2 Flow Rate FiO2 12/28/16 10:24 101.2 12/28/16 08:31 71 18 93 21 12/28/16 07:43 125/79 12/26/16 17:44 Room Air 12/25/16 17:06 2.0 Intake and Output 12/27/16 12/27/16 12/28/16 15:00 23:00 07:00 Intake Total 50 ml 950 ml 300 ml Balance 50 ml 950 ml 300 ml Results Result Diagram: 12/27/16 0540 12/26/16 0526 Medications Medications Current Medications Acetaminophen (Tylenol Tab) 650 mg Q4H PRN PO PAIN AND OR ELEVATED TEMP Last administered on 12/28/16 09:08; Admin Dose 650 MG; Start 12/25/16 at 19:30 Zolpidem Tartrate (Ambien) 10 mg HS PRN PO INSOMNIA; Start 12/25/16 at 19:30 Magnesium Hydroxide (Milk Of Mag) 30 ml DAILY PRN PO CONSTIPATION; Start 12/25 at 19:30 Promethazine HCl/ Codeine (Phenergan/ Codeine) 5 ml Q4H PRN PO COUGH Last administered on 12/28/16 00:54; Admin Dose 5 ML; Start 12/25/16 at 19:30 Ondansetron HCl (Zofran Inj) 4 mg Q4H PRN IV NAUSEA AND/OR VOMITING Last administered on 12/25/16 20:55; Admin Dose 4 MG; Start 12/25/16 at 20:00 Clonidine 0.1 mg 0.1 mg Q4H PRN NGT SBP>160 or DBP>90 Last administered on 16:12; Admin Dose 0.1 MG; Start 12/26/16 at 16:00 Cefepime HCl (Maxipime 1gm/50 ml (Pmx)) 50 ml @ 100 mls/hr Q12 IVPB Last administered on 12/28/16 09:08; Admin Dose 100 MLS/HR; Start 12/26/16 at 21: 00 Ferrous Sulfate (Feosol Liquid Cup) 150 mg DAILY PO Last administered on 09:08; Admin Dose 150 MG; Start 12/27/16 at 12:30 FARIBA OSEGUERA MD Dec 28, 2016 11:38
[2016-12-28 14:18] VITALS: BP 110/64; RESP 16
--- NOTE | 2016-12-28 14:52 | PN ---
DATE: 12/28/2016 SUBJECTIVE: The patient feels significantly better than yesterday, although she continues to have i ntermittent fevers. She denies chest pain or shortness of breath at this time. PHYSICAL EXAMINATION VITAL SIGNS: Temperature 101.2, pulse 71, blood pressure 125/79, oxygen saturation 93%. NECK: No jugular venous distention. LUNGS: Clear. CARDIAC: Regular rate and rhythm. ABDOMEN: Soft, nontender. EXTREMITIES: Reveal no edema. LABORATORY RESULTS: Not performed today. The patient is being treated for possible right upper lobe pneumonia, as well as possible mass. We w ill defer evaluation of CT findings to primary team. Echocardiogram revealed a preserved ejection f raction. Dictated By: KRISTY RUST/LU Conf#: [id number] DID#: [id number]
--- NOTE | 2016-12-28 15:25 | CONS ---
Date/Time of Note Date/Time of Note DATE: 12/28/16 TIME: 15:13 Assessment/Plan Assessment/Plan Chief Complaint/Hosp Course Assessment/Plan Chief Complaint/Hosp Course Alert. Awake. High Fever episode of 102.2 today. No Acute Distress. Vital Signs: T-98.8 BP- 110/64 HR- 78 RR-16 O2Sat- 94% Abx: Cefepime GENERAL: The patient is a well-developed, well-nourished female who is alert, responsive, in no acute distress. SKIN: Without generalized rash. HEENT: Within normal limits. NECK: Supple. LYMPH NODES: None palpable. CHEST: Decreased breath sounds at the bases. HEART: Without murmur or gallop. ABDOMEN: Soft and nontender, without organosplenomegaly or masses. EXTREMITIES: Without cyanosis, clubbing, or edema. NEUROLOGICAL: No focal neurological abnormality. Assessment: 1. PNA 2. ?L upper lobe mass per CT 3. RA 4. Anemia 5. Fever 6. Rule Out Tuberculosis Plan: Obtain AFB cultures. Obtain Blood cultures. Continue Antibiotics. Monitor Respiratory Status. Problems: Consultation Date/Type/Reason Admit Date/Time Dec 25, 2016 at 00:51 Initial Consult Date Type of Consultation: ID Exam/Review of Systems Vital Signs Vitals Vital Signs Date Time Temp Pulse Resp B/P Pulse Ox O2 Delivery O2 Flow Rate FiO2 12/28/16 14:18 98.0 78 16 110/64 94 12/28/16 08:31 21 12/26/16 17:44 Room Air 12/25/16 17:06 2.0 Intake and Output 12/27/16 12/27/16 12/28/16 15:00 23:00 07:00 Intake Total 50 ml 950 ml 300 ml Balance 50 ml 950 ml 300 ml Results Result Diagram: 12/27/16 0540 12/26/16 0526 Medications Medications Current Medications Acetaminophen (Tylenol Tab) 650 mg Q4H PRN PO PAIN AND OR ELEVATED TEMP Last administered on 12/28/16t 09:08; Admin Dose 650 MG; Start 12/25/16 at 19:30 Zolpidem Tartrate (Ambien) 10 mg HS PRN PO INSOMNIA; Start 12/25/16 at 19:30 Magnesium Hydroxide (Milk Of Mag) 30 ml DAILY PRN PO CONSTIPATION; Start 12/25 at 19:30 Promethazine HCl/ Codeine (Phenergan/ Codeine) 5 ml Q4H PRN PO COUGH Last administered on 12/28/16 00:54; Admin Dose 5 ML; Start 12/25/16 at 19:30 Ondansetron HCl (Zofran Inj) 4 mg Q4H PRN IV NAUSEA AND/OR VOMITING Last administered on 12/25/16 20:55; Admin Dose 4 MG; Start 12/25/16 at 20:00 Clonidine 0.1 mg 0.1 mg Q4H PRN NGT SBP>160 or DBP>90 Last administered on 16:12; Admin Dose 0.1 MG; Start 12/26/16 at 16:00 Cefepime HCl (Maxipime 1gm/50 ml (Pmx)) 50 ml @ 100 mls/hr Q12 IVPB Last administered on 12/28/16 09:08; Admin Dose 100 MLS/HR; Start 12/26/16 at 21: 00 Ferrous Sulfate (Feosol Liquid Cup) 150 mg DAILY PO Last administered on 09:08; Admin Dose 150 MG; Start 12/27/16 at 12:30 AN RAMESH NP Dec 28, 2016 15:23
[2016-12-28 20:36] VITALS: BP 135/74; RESP 16
[2016-12-29 02:36] VITALS: BP 129/72; RESP 16
[2016-12-29] MEDS: ACETAMINOPHEN 325 MG TAB PO PRN ×2 (02:37→20:03)
[2016-12-29] MEDS: LEVALBUTEROL (NEB) 0.31 MG/3 ML AMP HHN SCH ×2 (07:59→20:55)
[2016-12-29 08:12] VITALS: BP 136/62; RESP 20
[2016-12-29] MEDS: FERROUS SULFATE 60 MG/ML 5ML CUP PO SCH (09:06)
[2016-12-29] MEDS: CEFEPIME 1GM/50 ML (PMX) 50 ML IVPB SCH ×2 (09:06→20:55)
[2016-12-29 12:30] VITALS: BP 128/67; PULSE 68; RESP 17
[2016-12-29] MEDS: FLUCONAZOLE 200 MG TAB PO SCH (15:22)
--- NOTE | 2016-12-29 16:01 | CONS ---
Date/Time of Note Date/Time of Note DATE: 12/29/16 TIME: 15:45 Consultation Date/Type/Reason Admit Date/Time Dec 25, 2016 at 00:51 Initial Consult Date SUBJECTIVE: 56 y/o female being treated for PNA. Possible Lt upper lobe Lung mass. States that feeling OK. Alert. Awake. High Fever episode of 102.2 today. No Acute Distress. Vital Signs: T-98.0 BP- 136/62 HR- 66 R:20 O2Sat- 96% Earlier today temp was 102.9. LABS: WBC-9.3 H&H: 11.1/33.2 AFB SMEAR Final ACID FAST BACILLI NONE SEEN Blood Cultures x4=NEG. Stool is NEG for C.Diff. Sputum Culture =NEG. Abx: Cefepime GENERAL: The patient is a well-developed, well-nourished female who is alert, responsive, in no acute distress. SKIN: Without generalized rash. HEENT: Within normal limits. NECK: Supple. LYMPH NODES: None palpable. CHEST: Decreased breath sounds at the bases. HEART: Without murmur or gallop. ABDOMEN: Soft and nontender, without organosplenomegaly or masses. EXTREMITIES: Without cyanosis, clubbing, or edema. NEUROLOGICAL: No focal neurological abnormality. Assessment: 1. PNA 2. ?L upper lobe mass per CT 3. RA 4. Anemia 5. Fever 6. Rule Out Tuberculosis Plan: Continue Diflucan and Cefepime. Monitor Respiratory Status. Awaiting Pulm. team for eval. of possible mass per CT. Dr. Lawson has been notified. Problems: Type of Consultation: ID Exam/Review of Systems Vital Signs Vitals Vital Signs Date Time Temp Pulse Resp B/P Pulse Ox O2 Delivery O2 Flow Rate FiO2 12/29/16 08:12 98.0 66 20 136/62 96 12/29/16 08:00 21 12/26/16 17:44 Room Air 12/25/16 17:06 2.0 Intake and Output 12/28/16 12/28/16 12/29/16 15:00 23:00 07:00 Intake Total 50 ml 1070 ml 950 ml Balance 50 ml 1070 ml 950 ml Results Result Diagram: 12/29/16 0449 12/26/16 0526 Results 24 hrs Laboratory Tests Test 12/28/16 22:10 12/29/16 04:49 TB Skin Test Induration Pending TB Skin Test Administer Date [id number] TB Skin Test Administer Time 2209 TB Skin Test Injection Site Right Upper Forearm White Blood Count 9.3 # Red Blood Count 3.59 L Hemoglobin 11.1 L Hematocrit 33.2 L Mean Corpuscular Volume 92.5 Mean Corpuscular Hemoglobin 30.9 Mean Corpuscular Hemoglobin Concent 33.4 Red Cell Distribution Width 14.2 Platelet Count 390 # Mean Platelet Volume 10.8 H Neutrophils % 66.2 Lymphocytes % 15.1 Monocytes % 14.9 H Eosinophils % 2.4 Basophils % 0.8 Nucleated Red Blood Cells % 0.0 Neutrophils # 6.2 Lymphocytes # 1.4 Monocytes # 1.4 H Eosinophils # 0.2 Basophils # 0.1 Nucleated Red Blood Cells # 0.0 Erythrocyte Sedimentation Rate 100.00 H Medications Medications Current Medications Acetaminophen (Tylenol Tab) 650 mg Q4H PRN PO PAIN AND OR ELEVATED TEMP Last administered on 12/29/16 02:37; Admin Dose 650 MG; Start 12/25/16 at 19:30 Zolpidem Tartrate (Ambien) 10 mg HS PRN PO INSOMNIA; Start 12/25/16 at 19:30 Magnesium Hydroxide (Milk Of Mag) 30 ml DAILY PRN PO CONSTIPATION; Start 12/25 at 19:30 Promethazine HCl/ Codeine (Phenergan/ Codeine) 5 ml Q4H PRN PO COUGH Last administered on 12/28/16 00:54; Admin Dose 5 ML; Start 12/25/16 at 19:30 Ondansetron HCl (Zofran Inj) 4 mg Q4H PRN IV NAUSEA AND/OR VOMITING Last administered on 12/25/16 20:55; Admin Dose 4 MG; Start 12/25/16 at 20:00 Clonidine 0.1 mg 0.1 mg Q4H PRN NGT SBP>160 or DBP>90 Last administered on 16:12; Admin Dose 0.1 MG; Start 12/26/16 at 16:00 Cefepime HCl (Maxipime 1gm/50 ml (Pmx)) 50 ml @ 100 mls/hr Q12 IVPB Last administered on 12/29/16 09:06; Admin Dose 100 MLS/HR; Start 12/26/16 at 21: 00 Ferrous Sulfate (Feosol Liquid Cup) 150 mg DAILY PO Last administered on 09:06; Admin Dose 150 MG; Start 12/27/16 at 12:30 Fluconazole (Diflucan) 200 mg DAILY PO Last administered on 12/29/16 15:22; Admin Dose 200 MG; Start 12/29/16 at 13:30 JUNIOR RIVERA Dec 29, 2016 15:57
[2016-12-29 19:45] VITALS: BP 116/64; RESP 18
[2016-12-30 02:09] VITALS: BP 130/72; RESP 18
--- NOTE | 2016-12-30 04:37 | CONS ---
DATE OF ADMISSION: 12/25/2016 DATE OF CONSULTATION: TYPE OF CONSULTATION: Pulmonary. REASON FOR CONSULTATION: Abnormal chest CT. HISTORY OF PRESENT ILLNESS: This is a 56-year-old lady with several-week history of fluctuating fev ers, cough. No hemoptysis or hematemesis. No significant travel history. No sick contacts. No pr ior history of TB. Nonsmoker, no weight loss, no night sweats. Found on admission to have patchy l eft-sided infiltrate and dense left upper lobe mass versus consolidation. No prior history of lung problems that she is aware of. PAST MEDICAL HISTORY: Includes rheumatoid arthritis. ALLERGIES: AZITHROMYCIN. SOCIAL HISTORY: Nonsmoker, no alcohol, no history of drug use. FAMILY HISTORY: Noncontributory. SYSTEMS REVIEW: A 12-point review of systems was negative other than that mentioned above. PHYSICAL EXAMINATION: GENERAL: Elderly lady, appears comfortable at rest, no acute distress. VITAL SIGNS: Currently afebrile, pulse is 66, blood pressure 136/62, O2 sat 96% on FIO2 of room air . NECK: Supple. No JVD or lymphadenopathy. CARDIAC: S1, S2, no added sounds or murmurs. CHEST: Diminished air entry bilaterally. ABDOMEN: Soft, nontender. No guarding or rebound. EXTREMITIES: No cyanosis, clubbing or edema. NEUROLOGIC: Grossly intact. No focal deficits. LABORATORY DATA: White count 9.3, hemoglobin 11.1, platelets of 390. Chemistry within normal limit s. Iron low at 16. Microbiology negative to date including AFB x1. Blood cultures are negative. IMPRESSION AND PLAN: 1. Left upper lobe lesion and left-sided infiltrate. Lesion is concerning for possible malignancy, possibly secondary to endobronchial lesion with postobstructive changes. The patient will require continued current infectious disease recommendations. 2. Continue cultures. 3. Continue rule out TB, although unlikely. 4. CT-guided biopsy of left upper lobe lesion. If patient is not stable for biopsy, bronchoscopy w ill be required. Dictated By: AJ HANEY/LU Conf#: [id number] DID#: [id number]
--- NOTE | 2016-12-30 06:32 | PN ---
DATE: 12/29/2016 SUBJECTIVE: The patient awake and alert, feels well. However, she continued to spike fevers of 102 .9 and then goes down to normal. Cultures so far have all been negative. The patient is being test ed for tuberculosis for typhoid fever for malaria. Nothing positive has come back yet. Her cultures continue to be negative. There is a mass in the left upper lobe of the lung and it is possible julieta t she has in addition to pneumonia a possible neoplasm in this area. Lymphoma must be considered wi th this type of a fever. Patient is to have a biopsy of the mass in the left lobe of her lung tomor row. PHYSICAL EXAMINATION: HEART: Reveals heart to be normal sinus rhythm. LUNGS: Clear to A and P. ABDOMEN: Liver, kidneys, spleen are not palpable. Bowel sounds are normal. There are no intraabdo jorge masses or bruits. The patient is hungry and eating well. EXTREMITIES: No ankle edema. NECK: No lymphadenopathy. VITAL SIGNS: Temperature today various from 98 to 102.2. Blood pressure is 160/64 with a pulse of 78, respiratory rate is 18, pulse ox is 91% on room air. LABORATORY DATA: White blood cell count is 9300, hemoglobin is 11.1, hematocrit is 33.2, platelets are normal, differential is normal. Sed rate is 100, ferritin is 357, iron is 16, total iron bindin g capacity 189, percent saturation 88, total protein is 5.9 with A/G ratio of 0.8, would consider mu ltiple myeloma. Urine shows trace ketones, otherwise normal. Stool for occult blood is negative. Blood cultures negative x2. Clostridium difficile toxin assay is negative. Stool culture shows no isolated. Respiratory culture shows normal respiratory jake with Sonal albicans. Fungal c ultures are not yet back. Acid fast stain reveals none seen. MRSA screen is negative. Blood cultu re negative again x2 which makes 4. Urine culture negative after 48 hours. IMAGING: Chest x-ray revealed unchanged left upper lobe pneumonia, left lung mass cannot be exclude d. Correlation with CT scan of the chest should be considered and also cardiomegaly was noted. CAT scan of the chest reveals possible mass in the left upper lobe anteriorly measuring 6.5 x 6.2 cm. Correlation with a bronchoscopy should be considered. Patchy consolidation in left upper lobe consi stent with pneumonia, small regions of bronchiolitis bilaterally, left middle mediastinal lymphadeno jun measuring 2.1 x 1.3 cm reactive or neoplastic, very small left pleural effusion, degenerative changes of the spine. In view of the present studies, lymphoma or other hematological malignancy mu st be considered. Dictated By: SUSY DILLON/LU Conf#: [id number] DID#: [id number]
[2016-12-30 08:04] VITALS: BP 125/71; RESP 20
[2016-12-30] MEDS: FLUCONAZOLE 200 MG TAB PO SCH ×2 (08:40→10:25)
[2016-12-30] MEDS: FERROUS SULFATE 60 MG/ML 5ML CUP PO SCH ×2 (08:40→10:25)
[2016-12-30] MEDS: CEFEPIME 1GM/50 ML (PMX) 50 ML IVPB SCH ×2 (08:40→21:10)
[2016-12-30] MEDS: LEVALBUTEROL (NEB) 0.31 MG/3 ML AMP HHN SCH ×2 (09:00→19:40)
[2016-12-30] MEDS: ACETAMINOPHEN 325 MG TAB PO PRN ×2 (10:24→23:16)
[2016-12-30 14:00] VITALS: BP_SYST 113; BP_SYST 126; BP_DIAS 69; BP_DIAS 74; RESP 16; RESP 18
--- NOTE | 2016-12-30 14:13 | CONS ---
Date/Time of Note Date/Time of Note DATE: 12/30/16 TIME: 14:11 Consult Date/Type/Reason Admit Date/Time Dec 25, 2016 at 00:51 Type of Consultation: ID Objective Vital Signs Date Time Temp Pulse Resp B/P Pulse Ox O2 Delivery O2 Flow Rate FiO2 12/30/16 10:15 100.1 12/30/16 08:04 77 20 125/71 99 12/29/16 20:55 21 12/29/16 12:30 Room Air Intake and Output 12/29/16 12/29/16 12/30/16 15:00 23:00 07:00 Intake Total 50 ml 50 ml 1050 ml Balance 50 ml 50 ml 1050 ml Results/Medications Result Diagram: 12/30/16 0507 12/30/16 0507 Results 24 hrs Laboratory Tests Test 12/30/16 05:07 White Blood Count 8.5 Red Blood Count 3.98 L Hemoglobin 12.0 Hematocrit 37.4 Mean Corpuscular Volume 94.0 Mean Corpuscular Hemoglobin 30.2 Mean Corpuscular Hemoglobin Concent 32.1 Red Cell Distribution Width 14.3 Platelet Count 425 H Mean Platelet Volume 10.6 H Neutrophils % 63.5 Lymphocytes % 16.8 Monocytes % 15.2 H Eosinophils % 2.7 Basophils % 1.2 Nucleated Red Blood Cells % 0.0 Neutrophils # 5.4 Lymphocytes # 1.4 Monocytes # 1.3 H Eosinophils # 0.2 Basophils # 0.1 Nucleated Red Blood Cells # 0.0 Prothrombin Time 14.7 H Prothrombin Time Ratio 1.1 INR International Normalized Ratio 1.15 Activated Partial Thromboplast Time 34.6 Thrombin Time 16.6 Sodium Level 140 Potassium Level 4.8 Chloride Level 101 Carbon Dioxide Level 29 Anion Gap 15 Blood Urea Nitrogen 14 Creatinine 0.93 Glucose Level 85 Calcium Level 8.8 Phosphorus Level 4.2 Magnesium Level 2.1 Medications Current Medications Acetaminophen (Tylenol Tab) 650 mg Q4H PRN PO PAIN AND OR ELEVATED TEMP Last administered on 12/30/16t 10:24; Admin Dose 650 MG; Start 12/25/16 at 19:30 Zolpidem Tartrate (Ambien) 10 mg HS PRN PO INSOMNIA; Start 12/25/16 at 19:30 Magnesium Hydroxide (Milk Of Mag) 30 ml DAILY PRN PO CONSTIPATION; Start 12/25 at 19:30 Promethazine HCl/ Codeine (Phenergan/ Codeine) 5 ml Q4H PRN PO COUGH Last administered on 12/28/16 00:54; Admin Dose 5 ML; Start 12/25/16 at 19:30 Ondansetron HCl (Zofran Inj) 4 mg Q4H PRN IV NAUSEA AND/OR VOMITING Last administered on 12/25/16 20:55; Admin Dose 4 MG; Start 12/25/16 at 20:00 Clonidine 0.1 mg 0.1 mg Q4H PRN NGT SBP>160 or DBP>90 Last administered on 16:12; Admin Dose 0.1 MG; Start 12/26/16 at 16:00 Cefepime HCl (Maxipime 1gm/50 ml (Pmx)) 50 ml @ 100 mls/hr Q12 IVPB Last administered on 12/30/16 08:40; Admin Dose 100 MLS/HR; Start 12/26/16 at 21: 00 Ferrous Sulfate (Feosol Liquid Cup) 150 mg DAILY PO Last administered on 10:25; Admin Dose 150 MG; Start 12/27/16 at 12:30 Fluconazole (Diflucan) 200 mg DAILY PO Last administered on 12/30/16 10:25; Admin Dose 200 MG; Start 12/29/16 at 13:30 Assessment/Plan Chief Complaint/Hosp Course Patient is spiking fevers, T-max 102.2, T-current 100.1. She is alert denies pain and looks comfortable Abx: Cefepime, Diflucan GENERAL: The patient is a well-developed, well-nourished female who is alert, responsive, in no acute distress. SKIN: Without generalized rash. HEENT: Within normal limits. NECK: Supple. LYMPH NODES: None palpable. CHEST: Decreased breath sounds at the bases. HEART: Without murmur or gallop. ABDOMEN: Soft and nontender, without organosplenomegaly or masses. EXTREMITIES: Without cyanosis, clubbing, or edema. NEUROLOGICAL: No focal neurological abnormality. Assessment: 1. PNA 2. ?L upper lobe mass per CT 3. RA 4. Anemia Plan: Clinically stable, bld cx negative, continue abx, add Levaquin, pulmonary rec-s noted, pending lung bx vs bronch DW staff/pt Problems: PARAM LEON H[employer] RECEPTIONIST Dec 30, 2016 14:13
[2016-12-30] MEDS ORDERED: LEVOFLOXACIN 500 MG TAB PO ONE (14:30)
--- NOTE | 2016-12-30 14:56 | CONS ---
Date/Time of Note Date/Time of Note DATE: 12/30/16 TIME: 14:55 Consult Date/Type/Reason Admit Date/Time Dec 25, 2016 at 00:51 Initial Consult Date Type of Consultation: Pulmonary Subjective No new events. Patient remains stable. Still having fevers. Objective Vital Signs Date Time Temp Pulse Resp B/P Pulse Ox O2 Delivery O2 Flow Rate FiO2 12/30/16 10:15 100.1 12/30/16 08:04 77 20 125/71 99 12/29/16 20:55 21 12/29/16 12:30 Room Air Intake and Output 12/29/16 12/29/16 12/30/16 15:00 23:00 07:00 Intake Total 50 ml 50 ml 1050 ml Balance 50 ml 50 ml 1050 ml Exam GENERAL: Well-nourished well-developed lady comfortable at rest VITAL SIGNS: per chart NECK: Supple. No JVD or lymphadenopathy. CARDIAC EXAM: S1, S2. No added sounds or murmurs. CHEST: clear bilaterally, No added sounds, rales or wheezes ABDOMEN: Soft, nontender. No guarding or rebound. EXTREMITIES: No cyanosis, clubbing or edema. NEUROLOGIC: Generalized weakness. No focal deficits. Results/Medications Result Diagram: 12/30/16 0507 12/30/16 0507 Results 24 hrs Laboratory Tests Test 12/30/16 05:07 White Blood Count 8.5 Red Blood Count 3.98 L Hemoglobin 12.0 Hematocrit 37.4 Mean Corpuscular Volume 94.0 Mean Corpuscular Hemoglobin 30.2 Mean Corpuscular Hemoglobin Concent 32.1 Red Cell Distribution Width 14.3 Platelet Count 425 H Mean Platelet Volume 10.6 H Neutrophils % 63.5 Lymphocytes % 16.8 Monocytes % 15.2 H Eosinophils % 2.7 Basophils % 1.2 Nucleated Red Blood Cells % 0.0 Neutrophils # 5.4 Lymphocytes # 1.4 Monocytes # 1.3 H Eosinophils # 0.2 Basophils # 0.1 Nucleated Red Blood Cells # 0.0 Prothrombin Time 14.7 H Prothrombin Time Ratio 1.1 INR International Normalized Ratio 1.15 Activated Partial Thromboplast Time 34.6 Thrombin Time 16.6 Sodium Level 140 Potassium Level 4.8 Chloride Level 101 Carbon Dioxide Level 29 Anion Gap 15 Blood Urea Nitrogen 14 Creatinine 0.93 Glucose Level 85 Calcium Level 8.8 Phosphorus Level 4.2 Magnesium Level 2.1 Medications Current Medications Acetaminophen (Tylenol Tab) 650 mg Q4H PRN PO PAIN AND OR ELEVATED TEMP Last administered on 12/30/16 10:24; Admin Dose 650 MG; Start 12/25/16 at 19:30 Zolpidem Tartrate (Ambien) 10 mg HS PRN PO INSOMNIA; Start 12/25/16 at 19:30 Magnesium Hydroxide (Milk Of Mag) 30 ml DAILY PRN PO CONSTIPATION; Start 12/25 at 19:30 Promethazine HCl/ Codeine (Phenergan/ Codeine) 5 ml Q4H PRN PO COUGH Last administered on 12/28/16 00:54; Admin Dose 5 ML; Start 12/25/16 at 19:30 Ondansetron HCl (Zofran Inj) 4 mg Q4H PRN IV NAUSEA AND/OR VOMITING Last administered on 12/25/16 20:55; Admin Dose 4 MG; Start 12/25/16 at 20:00 Clonidine 0.1 mg 0.1 mg Q4H PRN NGT SBP>160 or DBP>90 Last administered on 16:12; Admin Dose 0.1 MG; Start 12/26/16 at 16:00 Cefepime HCl (Maxipime 1gm/50 ml (Pmx)) 50 ml @ 100 mls/hr Q12 IVPB Last administered on 12/30/16 08:40; Admin Dose 100 MLS/HR; Start 12/26/16 at 21: 00 Ferrous Sulfate (Feosol Liquid Cup) 150 mg DAILY PO Last administered on 10:25; Admin Dose 150 MG; Start 12/27/16 at 12:30 Fluconazole (Diflucan) 200 mg DAILY PO Last administered on 12/30/16 10:25; Admin Dose 200 MG; Start 12/29/16 at 13:30 Levofloxacin (Levaquin) 500 mg DAILY@06 PO ; Start 12/31/16 at 06:00 Lactobacillus Acidophilus (Florajen3 Capsule) 1 each BID PO ; Start 12/30/16 at 21:00 Assessment/Plan Chief Complaint/Hosp Course IMPRESSION AND PLAN: 1. Left upper lobe lesion and left-sided infiltrate. Lesion is concerning for possible malignancy, possibly secondary to endobronchial lesion with postobstructive changes. The patient will require continued current infectious disease recommendations. 2. Continue cultures. 3. Continue rule out TB, although unlikely. 4. Discussed with radiology this morning. Feel that this lesion may be more amenable to bronchoscopy. Bronchoscopy tentatively scheduled for 11 AM tomorrow morning. Problems: AJ CORONEL MD, [facility] Dec 30, 2016 14:56
--- NOTE | 2016-12-30 15:52 | CONS ---
Date/Time of Note Date/Time of Note DATE: 12/30/16 TIME: 15:50 Assessment/Plan Assessment/Plan Additional Assessment/Plan Chest pain Preserved ejection fraction Lung mass -Patient with no further episodes of chest discomfort ECG with no significant ischemic abnormalities and echocardiogram with preserved ejection fraction. Undergoing workup for lung mass. Consultation Date/Type/Reason Admit Date/Time Dec 25, 2016 at 00:51 Initial Consult Date Type of Consultation: cv 24 HR Interval Summary Free Text/Dictation Overall feeling better, denies chest pain or shortness of breath Exam/Review of Systems Vital Signs Vitals Vital Signs Date Time Temp Pulse Resp B/P Pulse Ox O2 Delivery O2 Flow Rate FiO2 12/30/16 14:00 97.7 63 18 126/74 98 12/29/16 20:55 21 12/29/16 12:30 Room Air Intake and Output 12/29/16 12/29/16 12/30/16 15:00 23:00 07:00 Intake Total 50 ml 50 ml 1050 ml Balance 50 ml 50 ml 1050 ml Exam No apparent distress Constitutional: alert, obese, oriented Head: normocephalic Respiratory: other (Coarse breath sounds bilaterally, no wheezing) Cardiovascular: other (S1-S2 heard), regular rate and rhythm Gastrointestinal: bowel sounds, non-tender, soft Extremities: other (No significant edema) Results Result Diagram: 12/30/16 0507 12/30/16 0507 Results 24 hrs Laboratory Tests Test 12/30/16 05:07 White Blood Count 8.5 Red Blood Count 3.98 L Hemoglobin 12.0 Hematocrit 37.4 Mean Corpuscular Volume 94.0 Mean Corpuscular Hemoglobin 30.2 Mean Corpuscular Hemoglobin Concent 32.1 Red Cell Distribution Width 14.3 Platelet Count 425 H Mean Platelet Volume 10.6 H Neutrophils % 63.5 Lymphocytes % 16.8 Monocytes % 15.2 H Eosinophils % 2.7 Basophils % 1.2 Nucleated Red Blood Cells % 0.0 Neutrophils # 5.4 Lymphocytes # 1.4 Monocytes # 1.3 H Eosinophils # 0.2 Basophils # 0.1 Nucleated Red Blood Cells # 0.0 Prothrombin Time 14.7 H Prothrombin Time Ratio 1.1 INR International Normalized Ratio 1.15 Activated Partial Thromboplast Time 34.6 Thrombin Time 16.6 Sodium Level 140 Potassium Level 4.8 Chloride Level 101 Carbon Dioxide Level 29 Anion Gap 15 Blood Urea Nitrogen 14 Creatinine 0.93 Glucose Level 85 Calcium Level 8.8 Phosphorus Level 4.2 Magnesium Level 2.1 Medications Medications Current Medications Acetaminophen (Tylenol Tab) 650 mg Q4H PRN PO PAIN AND OR ELEVATED TEMP Last administered on 12/30/16 10:24; Admin Dose 650 MG; Start 12/25/16 at 19:30 Zolpidem Tartrate (Ambien) 10 mg HS PRN PO INSOMNIA; Start 12/25/16 at 19:30 Magnesium Hydroxide (Milk Of Mag) 30 ml DAILY PRN PO CONSTIPATION; Start 12/25 at 19:30 Promethazine HCl/ Codeine (Phenergan/ Codeine) 5 ml Q4H PRN PO COUGH Last administered on 12/28/16 00:54; Admin Dose 5 ML; Start 12/25/16 at 19:30 Ondansetron HCl (Zofran Inj) 4 mg Q4H PRN IV NAUSEA AND/OR VOMITING Last administered on 12/25/16 20:55; Admin Dose 4 MG; Start 12/25/16 at 20:00 Clonidine 0.1 mg 0.1 mg Q4H PRN NGT SBP>160 or DBP>90 Last administered on 16:12; Admin Dose 0.1 MG; Start 12/26/16 at 16:00 Cefepime HCl (Maxipime 1gm/50 ml (Pmx)) 50 ml @ 100 mls/hr Q12 IVPB Last administered on 12/30/16 08:40; Admin Dose 100 MLS/HR; Start 12/26/16 at 21: 00 Ferrous Sulfate (Feosol Liquid Cup) 150 mg DAILY PO Last administered on 10:25; Admin Dose 150 MG; Start 12/27/16 at 12:30 Fluconazole (Diflucan) 200 mg DAILY PO Last administered on 12/30/16 10:25; Admin Dose 200 MG; Start 12/29/16 at 13:30 Levofloxacin (Levaquin) 500 mg DAILY@06 PO ; Start 12/31/16 at 06:00 Lactobacillus Acidophilus (Florajen3 Capsule) 1 each BID PO ; Start 12/30/16 at 21:00 Tony Oh DO Dec 30, 2016 15:52
[2016-12-30 20:28] VITALS: BP 115/69; RESP 17
[2016-12-30] MEDS: L ACIDOPHIL/B LACTIS/B LONGUM CAPSULE PO SCH (21:10)
[2016-12-31] VITALS (13 sets, daily range): BP systolic 108–123; BP diastolic 55–70; PULSE 62–75; RESP 17–28
--- NOTE | 2016-12-31 02:11 | PN ---
DATE: 12/30/2016 SUBJECTIVE: GENERAL: The patient awake and alert, feels better, still has a dry nonproductive cough, but also s till spiking fevers, but not quite as high. CHEST: Clear to A and P. ABDOMEN: Liver, kidneys, spleen are not palpable. Bowel sounds are normal. No intraabdominal mass es or bruits. The patient's appetite is fair. She is moving her bowels. HEART: Normal sinus rhythm. VITAL SIGNS: Temperature varies from 97.7 to 101, blood pressure 115/69, pulse per minute, re spiratory rate 20 per minute, pulse ox 98% on room oxygen. LABORATORY DATA: White blood cell count 8500, hemoglobin 12, hematocrit 37.4%, platelet count is sl ightly high at 425,000. Differential normal. INR 1.15, PTT 34.6, thrombin time 16.6. Sodium 140, potassium 4.8, chloride 101, carbon dioxide 29, BUN 14, creatinine 0.93, glucose 85, calcium 8.8, ph osphorus and magnesium normal. PPD test is pending. Acid fast stain: None seen because the TB sme ar is negative; isolation may be discontinued pending approval by the infectious diseases specialist , Dr. Vargas. Blood cultures continue to be negative. The biopsy of the mass in the left upper and lower lung has been canceled and instead bronchoscopy will be performed tomorrow. The radiologist felt that the lesion is probably more amenable to be reached by bronchoscopy than with a lung biopsy ; therefore, she will have a bronchoscopy rather than a lung biopsy tomorrow. Dictated By: SUSY DILLON/LU Conf#: [id number] DID#: [id number]
[2016-12-31] MEDS: LEVOFLOXACIN 500 MG TAB PO SCH (06:00)
[2016-12-31] MEDS ORDERED: EPHEDrine SULFATE 50 MG/5 ML SYG ONE (07:00)
[2016-12-31] MEDS: LEVALBUTEROL (NEB) 0.31 MG/3 ML AMP HHN SCH ×2 (08:30→20:11)
[2016-12-31] MEDS: FLUCONAZOLE 200 MG TAB PO SCH (08:37)
[2016-12-31] MEDS: L ACIDOPHIL/B LACTIS/B LONGUM CAPSULE PO SCH ×2 (08:38→21:27)
[2016-12-31] MEDS: FERROUS SULFATE 60 MG/ML 5ML CUP PO SCH (08:38)
[2016-12-31] MEDS: CEFEPIME 1GM/50 ML (PMX) 50 ML IVPB SCH ×2 (08:47→21:27)
--- NOTE | 2016-12-31 11:04 | CONS ---
Date/Time of Note Date/Time of Note DATE: 12/31/16 TIME: 11:03 Assessment/Plan Assessment/Plan Additional Assessment/Plan Assessment and recommendations; 1. Patient admitted with left upper lobe pneumonia with possible endobronchial lesion. Clinically improved. Continue current treatment. Patient scheduled for bronchoscopy today. The procedure was discussed in detail with her and the patient has signed a consent form. Consultation Date/Type/Reason Admit Date/Time Dec 25, 2016 at 00:51 Initial Consult Date Type of Consultation: Pulmonary 24 HR Interval Summary Free Text/Dictation Patient's condition is stable. Complains of very scant cough. Denies any chest pain, fever, hemoptysis or sputum production. Next General exam; middle-aged woman, awake and alert. Currently in no distress. Exam/Review of Systems Vital Signs Vitals Vital Signs Date Time Temp Pulse Resp B/P Pulse Ox O2 Delivery O2 Flow Rate FiO2 12/31/16 08:31 75 18 95 Nasal Cannula 2.0 12/31/16 08:04 100.3 108/64 12/29/16 20:55 21 Intake and Output 12/30/16 12/30/16 12/31/16 15:00 23:00 07:00 Intake Total 50 ml 970 ml 950 ml Balance 50 ml 970 ml 950 ml Exam HEENT exam; supple neck, no JVD. No lymphadenopathy. Midline trachea. No thyromegaly. Patient has fair dentition. Chest exam; clear to auscultation. S1-S2 audible, no murmurs. Regular rhythm. Abdomen exam; soft, nontender. No organomegaly. Bowel sounds audible. Extremity exam; no peripheral edema. DEAF/H[employer] OF HEARING SPECIALIST exam; no focal deficit. Results Result Diagram: 12/30/16 0507 12/30/16 0507 Medications Medications Current Medications Acetaminophen (Tylenol Tab) 650 mg Q4H PRN PO PAIN AND OR ELEVATED TEMP Last administered on 12/30/16t 23:16; Admin Dose 650 MG; Start 12/25/16 at 19:30 Zolpidem Tartrate (Ambien) 10 mg HS PRN PO INSOMNIA; Start 12/25/16 at 19:30 Magnesium Hydroxide (Milk Of Mag) 30 ml DAILY PRN PO CONSTIPATION; Start 12/25 at 19:30 Promethazine HCl/ Codeine (Phenergan/ Codeine) 5 ml Q4H PRN PO COUGH Last administered on 12/28/16 00:54; Admin Dose 5 ML; Start 12/25/16 at 19:30 Ondansetron HCl (Zofran Inj) 4 mg Q4H PRN IV NAUSEA AND/OR VOMITING Last administered on 12/25/16 20:55; Admin Dose 4 MG; Start 12/25/16 at 20:00 Clonidine 0.1 mg 0.1 mg Q4H PRN NGT SBP>160 or DBP>90 Last administered on 16:12; Admin Dose 0.1 MG; Start 12/26/16 at 16:00 Cefepime HCl (Maxipime 1gm/50 ml (Pmx)) 50 ml @ 100 mls/hr Q12 IVPB Last administered on 12/31/16 08:47; Admin Dose 100 MLS/HR; Start 12/26/16 at 21: 00 Ferrous Sulfate (Feosol Liquid Cup) 150 mg DAILY PO Last administered on 10:25; Admin Dose 150 MG; Start 12/27/16 at 12:30 Fluconazole (Diflucan) 200 mg DAILY PO Last administered on 12/30/16 10:25; Admin Dose 200 MG; Start 12/29/16 at 13:30 Levofloxacin (Levaquin) 500 mg DAILY@06 PO ; Start 12/31/16 at 06:00 Lactobacillus Acidophilus (Florajen3 Capsule) 1 each BID PO Last administered on 12/30/16 21:10; Admin Dose 1 EACH; Start 12/30/16 at 21:00 JOSTIN CURTIS Dec 31, 2016 11:04
[2016-12-31] MEDS ORDERED: MIDAZOLAM 1 MG/ML 2 ML INJ ONE (12:12)
[2016-12-31] MEDS ORDERED: PROPOFOL 20 ML ONE ×2 (12:13→12:39)
[2016-12-31] MEDS ORDERED: LIDOCAINE 2% (SDV) 5 ML INJ ONE (12:13)
[2016-12-31] MEDS ORDERED: SUCCINYLCHOLINE CHLORIDE 100 MG/5 ML SYG IV ONE (12:13)
[2016-12-31] MEDS ORDERED: LIDOCAINE 1% (MPF) 30 ML INJ ONE (12:21)
[2016-12-31] MEDS ORDERED: LIDOCAINE 1% (MPF) 30 ML INJ INJ ONE (12:30)
[2016-12-31] MEDS ORDERED: DEXAMETHASONE 4 MG/ML 1 ML INJ ONE (12:35)
[2016-12-31] MEDS ORDERED: ONDANSETRON 4 MG INJ ONE (12:35)
[2016-12-31] MEDS ORDERED: FENTAnyl 50 MCG/ML VIAL ONE (12:35)
--- NOTE | 2016-12-31 12:54 | OPPN ---
Date/Time of Note Date/Time of Note DATE: 12/31/16 TIME: 12:50 Operative Report Preoperative Diagnosis Left upper lobe pneumonia Postoperative Diagnosis Normal bronchoscopy Operation/Procedure Performed Patient was brought into the OR. Informed consent was obtained earlier. Patient was intubated by the anesthesiologist after induction of anesthesia. Bronchoscope was introduced via endotracheal tube. Distal trachea was normal, romeo was sharp and well defined. The scope was introduced into the right mainstem bronchus, with evaluation of the right upper lobe, bronchus intermedius , superior segment of the lower lobe, middle lobe and lower lobe orifices that were completely normal. The scope was then introduced into the left mainstem bronchus, with evaluation of the left upper lobe, lingula, superior segment of the lower lobe and lower lobes , no endobronchial pathology was seen. The scope was then wedged in the left upper lobe and after instilling 50 mL of normal saline BAL was performed with a fair return. The scope was then withdrawn. The procedure was well tolerated with stable O2 sat, cardiac rhythm and vital signs. Next Start time was 12:20 PM, finish time was 12:25 PM. Surgeon see signature line radiology physician assistant dr curtis Anesthesia: general Estimated blood loss: none Transfusion Required none Specimen BAL from left upper lobe. Grafts/Implants none Complications none JOSTIN CURTIS Dec 31, 2016 12:54
--- NOTE | 2016-12-31 14:10 | CONS ---
Date/Time of Note Date/Time of Note DATE: 12/31/16 TIME: 14:07 Consult Date/Type/Reason Admit Date/Time Dec 25, 2016 at 00:51 Type of Consultation: ID Objective Vital Signs Date Time Temp Pulse Resp B/P Pulse Ox O2 Delivery O2 Flow Rate FiO2 12/31/16 13:35 68 20 119/63 96 Nasal Cannula 2.0 12/31/16 13:05 98.3 12/29/16 20:55 21 Intake and Output 12/30/16 12/30/16 12/31/16 15:00 23:00 07:00 Intake Total 50 ml 970 ml 950 ml Balance 50 ml 970 ml 950 ml Results/Medications Result Diagram: 12/30/16 0507 12/30/16 0507 Medications Current Medications Acetaminophen (Tylenol Tab) 650 mg Q4H PRN PO PAIN AND OR ELEVATED TEMP Last administered on 12/30/16 23:16; Admin Dose 650 MG; Start 12/25/16 at 19:30 Zolpidem Tartrate (Ambien) 10 mg HS PRN PO INSOMNIA; Start 12/25/16 at 19:30 Magnesium Hydroxide (Milk Of Mag) 30 ml DAILY PRN PO CONSTIPATION; Start 12/25 at 19:30 Promethazine HCl/ Codeine (Phenergan/ Codeine) 5 ml Q4H PRN PO COUGH Last administered on 12/28/16 00:54; Admin Dose 5 ML; Start 12/25/16 at 19:30 Ondansetron HCl (Zofran Inj) 4 mg Q4H PRN IV NAUSEA AND/OR VOMITING Last administered on 12/25/16 20:55; Admin Dose 4 MG; Start 12/25/16 at 20:00 Clonidine 0.1 mg 0.1 mg Q4H PRN NGT SBP>160 or DBP>90 Last administered on 16:12; Admin Dose 0.1 MG; Start 12/26/16 at 16:00 Cefepime HCl (Maxipime 1gm/50 ml (Pmx)) 50 ml @ 100 mls/hr Q12 IVPB Last administered on 12/31/16 08:47; Admin Dose 100 MLS/HR; Start 12/26/16 at 21: 00 Ferrous Sulfate (Feosol Liquid Cup) 150 mg DAILY PO Last administered on 10:25; Admin Dose 150 MG; Start 12/27/16 at 12:30 Fluconazole (Diflucan) 200 mg DAILY PO Last administered on 12/30/16 10:25; Admin Dose 200 MG; Start 12/29/16 at 13:30 Levofloxacin (Levaquin) 500 mg DAILY@06 PO ; Start 12/31/16 at 06:00 Lactobacillus Acidophilus (Florajen3 Capsule) 1 each BID PO Last administered on 12/30/16 21:10; Admin Dose 1 EACH; Start 12/30/16 at 21:00 Assessment/Plan Chief Complaint/Hosp Course Patient is alert, feels good, continues to spike fevers Abx: Cefepime, Diflucan, Levaquin GENERAL: The patient is a well-developed, well-nourished female who is alert, responsive, in no acute distress. SKIN: Without generalized rash. HEENT: Within normal limits. NECK: Supple. LYMPH NODES: None palpable. CHEST: Decreased breath sounds at the bases. HEART: Without murmur or gallop. ABDOMEN: Soft and nontender, without organosplenomegaly or masses. EXTREMITIES: Without cyanosis, clubbing, or edema. NEUROLOGICAL: No focal neurological abnormality. Assessment: 1. PNA 2. ?L upper lobe mass per CT 3. RA 4. Anemia Plan: Clinically stable, bld cx negative, continue abx, f/u pulmonary rec-s, pending bronchoscopy, pending cocci DW staff/pt Problems: PARAM LEON NP Dec 31, 2016 14:10
[2017-01-01 02:00] VITALS: BP 128/82; RESP 20
[2017-01-01] MEDS: LEVOFLOXACIN 500 MG TAB PO SCH (05:36)
[2017-01-01 07:50] VITALS: BP 114/78; RESP 16
--- NOTE | 2017-01-01 08:42 | PN ---
DATE: 01/01/2017 PHYSICAL EXAMINATION: GENERAL: The patient is alert and awake, feels well. Is eating well. Appetite is returning to [place] mal. CHEST: Clear to A and P. HEART: Normal sinus rhythm. No murmurs, no enlargement. ABDOMEN: Liver, kidneys, spleen are not palpable. Bowel sounds are normal. No intraabdominal mass es or bruits. EXTREMITIES: No ankle edema. The patient had a bronchoscopy today which revealed no evidence of tumor. On the right side, everyt mary ellen was normal. On the left side, the scope was introduced into the left main stem bronchus which is evaluation of the left upper lobe, lingula, superior segment and lower lobes. No endobronchial p athology was seen. The scope was then wedged in the left upper lobe. After receiving 50 mL of norm al saline, BAL was performed with fair return. No suspicious areas for tumor was seen. VITAL SIGNS: Temperature varied from 98.3 to 100.3, blood pressure 123/60, pulse varied from 62 to 102, respiratory rate 28, pulse ox 98% on room air. Electrolytes were normal. Stool for occult blood was negative. Acid fast stain showed no evidence of acid fast bacteria. Therefore, the patient gowning restriction may now be lifted; however, it is still advisable that people wear masks when they go into her room because of the pneumonia. Awaiti ng results of washings from the bronchoscopy. Dictated By: SUSY DILLON/LU Conf#: [id number] DID#: [id number]
[2017-01-01] MEDS: FERROUS SULFATE 60 MG/ML 5ML CUP PO SCH (09:01)
[2017-01-01] MEDS: CEFEPIME 1GM/50 ML (PMX) 50 ML IVPB SCH ×2 (09:01→21:16)
[2017-01-01] MEDS: L ACIDOPHIL/B LACTIS/B LONGUM CAPSULE PO SCH ×2 (09:01→21:16)
[2017-01-01] MEDS: FLUCONAZOLE 200 MG TAB PO SCH (09:01)
[2017-01-01] MEDS: PROMETHAZINE/CODEINE 5ML CUP PO PRN (09:01)
[2017-01-01] MEDS: LEVALBUTEROL (NEB) 0.31 MG/3 ML AMP HHN SCH ×2 (09:41→20:18)
--- NOTE | 2017-01-01 11:38 | RADRPT ---
PROCEDURE: Chest 1 views. CLINICAL INDICATION: Shortness of breath. TECHNIQUE: AP views of the chest was obtained. COMPARISON: December 26, [address] December 27, 2016 FINDINGS: The heart is large. Perihilar left upper lobe lung mass continues to be seen. Left upper lobe infilt rates have decreased. Patchy infiltrates in the left lower lobe have decreased. Mild residual remain s. Atelectasis is seen at the right lung base. Osseous structures are intact. IMPRESSION: Cardiomegaly . Continued perihilar left upper lobe lung mass. Interval decrease in patchy left upper lobe infiltrates. Interval decrease in patchy left lower lobe infiltrates. Mild residual remains. Atelectasis at the right lung base. RPTAT: AA .Jesus Coelho MD, Date Time Electronically viewed and signed by .Jesus Coelho MD, MD on 01/01/2017 11:38 .P/
--- NOTE | 2017-01-01 11:56 | CONS ---
Date/Time of Note Date/Time of Note DATE: 01/01/17 TIME: 11:54 Assessment/Plan Assessment/Plan Additional Assessment/Plan Chest x-ray was reviewed from today which is showing improvement in left upper and lower lobe infiltrative changes. Assessment and recommendations; 1. Patient admitted with extensive pneumonia involving left lung, CT chest imaging was concerning for underlying lung mass. Patient underwent bronchoscopy yesterday with totally normal findings. 2. Significant radiological improvement on today's chest x-ray. Continue current treatment. Obtain another follow-up chest x-ray in 48 hours. Consultation Date/Type/Reason Admit Date/Time Dec 25, 2016 at 00:51 Type of Consultation: Pulmonary 24 HR Interval Summary Free Text/Dictation Patient's condition is stable. Denies any chest pain, fever, cough, wheezing or sputum production. Patient is reporting marked improvement in symptoms. General exam; middle-aged woman, awake and alert. Currently in no distress. Exam/Review of Systems Vital Signs Vitals Vital Signs Date Time Temp Pulse Resp B/P Pulse Ox O2 Delivery O2 Flow Rate FiO2 01/01/17 09:48 96 2.0 01/01/17 09:41 80 18 Nasal Cannula 01/01/17 07:50 97.9 114/78 12/29/16 20:55 21 Intake and Output 12/31/16 12/31/16 01/01/17 15:00 23:00 07:00 Intake Total 550 ml 300 ml 720 ml Output Total 0 ml Balance 550 ml 300 ml 720 ml Exam HEENT exam; supple neck, no JVD. No lymphadenopathy. Midline trachea. No thyromegaly. Pharynx is clear. Patient has good dentition. Chest exam; clear to auscultation. S1-S2 audible, no murmurs. Regular rhythm. Abdomen exam; soft, nontender. No organomegaly. Bowel sounds audible. Next Extremity exam; no peripheral edema. No clubbing. ALL SOURCE INTELLIGENCE TECHNICIAN exam; no focal deficit. Results Result Diagram: 01/01/17 0451 01/01/17 045 Results 24 hrs Laboratory Tests Test 01/01/17 04:51 White Blood Count 10.4 # Red Blood Count 3.88 L Hemoglobin 11.7 L Hematocrit 36.5 L Mean Corpuscular Volume 94.1 Mean Corpuscular Hemoglobin 30.2 Mean Corpuscular Hemoglobin Concent 32.1 Red Cell Distribution Width 14.3 Platelet Count 526 #H Mean Platelet Volume 10.9 H Neutrophils % 86.7 H Lymphocytes % 8.8 L Monocytes % 3.8 Eosinophils % 0.0 Basophils % 0.1 Nucleated Red Blood Cells % 0.0 Neutrophils # 9.0 H Lymphocytes # 0.9 Monocytes # 0.4 Eosinophils # 0.0 Basophils # 0.0 Nucleated Red Blood Cells # 0.0 Sodium Level 142 Potassium Level 5.0 Chloride Level 105 Carbon Dioxide Level 29 Anion Gap 13 Blood Urea Nitrogen 16 Creatinine 0.84 Glucose Level 119 Calcium Level 9.7 Medications Medications Current Medications Acetaminophen (Tylenol Tab) 650 mg Q4H PRN PO PAIN AND OR ELEVATED TEMP Last administered on 12/30/16 23:16; Admin Dose 650 MG; Start 12/25/16 at 19:30 Zolpidem Tartrate (Ambien) 10 mg HS PRN PO INSOMNIA; Start 12/25/16 at 19:30 Magnesium Hydroxide (Milk Of Mag) 30 ml DAILY PRN PO CONSTIPATION; Start 12/25 at 19:30 Promethazine HCl/ Codeine (Phenergan/ Codeine) 5 ml Q4H PRN PO COUGH Last administered on 01/01/17 09:01; Admin Dose 5 ML; Start 12/25/16 at 19:30 Ondansetron HCl (Zofran Inj) 4 mg Q4H PRN IV NAUSEA AND/OR VOMITING Last administered on 12/25/16 20:55; Admin Dose 4 MG; Start 12/25/16 at 20:00 Clonidine 0.1 mg 0.1 mg Q4H PRN NGT SBP>160 or DBP>90 Last administered on 16:12; Admin Dose 0.1 MG; Start 12/26/16 at 16:00 Cefepime HCl (Maxipime 1gm/50 ml (Pmx)) 50 ml @ 100 mls/hr Q12 IVPB Last administered on 01/01/17 09:01; Admin Dose 100 MLS/HR; Start 12/26/16 at 21: 00 Ferrous Sulfate (Feosol Liquid Cup) 150 mg DAILY PO Last administered on 09:01; Admin Dose 150 MG; Start 12/27/16 at 12:30 Fluconazole (Diflucan) 200 mg DAILY PO Last administered on 01/01/17 09:01; Admin Dose 200 MG; Start 12/29/16 at 13:30 Levofloxacin (Levaquin) 500 mg DAILY@06 PO Last administered on 01/01/17 05: 36; Admin Dose 500 MG; Start 12/31/16 at 06:00 Lactobacillus Acidophilus (Florajen3 Capsule) 1 each BID PO Last administered on 01/01/17 09:01; Admin Dose 1 EACH; Start 12/30/16 at 21:00 JOSTIN CURTIS Jan 01, 2017 11:56
--- NOTE | 2017-01-01 14:02 | CONS ---
Date/Time of Note Date/Time of Note DATE: 01/01/17 TIME: 13:59 Consult Date/Type/Reason Admit Date/Time Dec 25, 2016 at 00:51 Type of Consultation: ID Objective Vital Signs Date Time Temp Pulse Resp B/P Pulse Ox O2 Delivery O2 Flow Rate FiO2 01/01/17 09:48 96 2.0 01/01/17 09:41 80 18 Nasal Cannula 01/01/17 07:50 97.9 114/78 12/29/16 20:55 21 Intake and Output 12/31/16 12/31/16 01/01/17 15:00 23:00 07:00 Intake Total 550 ml 300 ml 720 ml Output Total 0 ml Balance 550 ml 300 ml 720 ml Results/Medications Result Diagram: 01/01/17 0451 01/01/17 0451 Results 24 hrs Laboratory Tests Test 01/01/17 04:51 White Blood Count 10.4 # Red Blood Count 3.88 L Hemoglobin 11.7 L Hematocrit 36.5 L Mean Corpuscular Volume 94.1 Mean Corpuscular Hemoglobin 30.2 Mean Corpuscular Hemoglobin Concent 32.1 Red Cell Distribution Width 14.3 Platelet Count 526 #H Mean Platelet Volume 10.9 H Neutrophils % 86.7 H Lymphocytes % 8.8 L Monocytes % 3.8 Eosinophils % 0.0 Basophils % 0.1 Nucleated Red Blood Cells % 0.0 Neutrophils # 9.0 H Lymphocytes # 0.9 Monocytes # 0.4 Eosinophils # 0.0 Basophils # 0.0 Nucleated Red Blood Cells # 0.0 Sodium Level 142 Potassium Level 5.0 Chloride Level 105 Carbon Dioxide Level 29 Anion Gap 13 Blood Urea Nitrogen 16 Creatinine 0.84 Glucose Level 119 Calcium Level 9.7 Medications Current Medications Acetaminophen (Tylenol Tab) 650 mg Q4H PRN PO PAIN AND OR ELEVATED TEMP Last administered on 12/30/16 23:16; Admin Dose 650 MG; Start 12/25/16 at 19:30 Zolpidem Tartrate (Ambien) 10 mg HS PRN PO INSOMNIA; Start 12/25/16 at 19:30 Magnesium Hydroxide (Milk Of Mag) 30 ml DAILY PRN PO CONSTIPATION; Start 12/25 at 19:30 Promethazine HCl/ Codeine (Phenergan/ Codeine) 5 ml Q4H PRN PO COUGH Last administered on 01/01/17 09:01; Admin Dose 5 ML; Start 12/25/16 at 19:30 Ondansetron HCl (Zofran Inj) 4 mg Q4H PRN IV NAUSEA AND/OR VOMITING Last administered on 12/25/16 20:55; Admin Dose 4 MG; Start 12/25/16 at 20:00 Clonidine 0.1 mg 0.1 mg Q4H PRN NGT SBP>160 or DBP>90 Last administered on 16:12; Admin Dose 0.1 MG; Start 12/26/16 at 16:00 Cefepime HCl (Maxipime 1gm/50 ml (Pmx)) 50 ml @ 100 mls/hr Q12 IVPB Last administered on 01/01/17 09:01; Admin Dose 100 MLS/HR; Start 12/26/16 at 21: 00 Ferrous Sulfate (Feosol Liquid Cup) 150 mg DAILY PO Last administered on 09:01; Admin Dose 150 MG; Start 12/27/16 at 12:30 Fluconazole (Diflucan) 200 mg DAILY PO Last administered on 01/01/17 09:01; Admin Dose 200 MG; Start 12/29/16 at 13:30 Levofloxacin (Levaquin) 500 mg DAILY@06 PO Last administered on 01/01/17 05: 36; Admin Dose 500 MG; Start 12/31/16 at 06:00 Lactobacillus Acidophilus (Florajen3 Capsule) 1 each BID PO Last administered on 01/01/17 09:01; Admin Dose 1 EACH; Start 12/30/16 at 21:00 Assessment/Plan Chief Complaint/Hosp Course Patient is alert, feels good, continues to spike fevers Abx: Cefepime, Diflucan, Levaquin GENERAL: The patient is a well-developed, well-nourished female who is alert, responsive, in no acute distress. SKIN: Without generalized rash. HEENT: Within normal limits. NECK: Supple. LYMPH NODES: None palpable. CHEST: Decreased breath sounds at the bases. HEART: Without murmur or gallop. ABDOMEN: Soft and nontender, without organosplenomegaly or masses. EXTREMITIES: Without cyanosis, clubbing, or edema. NEUROLOGICAL: No focal neurological abnormality. Assessment: 1. PNA 2. ?L upper lobe mass per CT==> bronch negative 3. RA 4. Anemia Plan: Clinically stable, fevers resolving, bld cx negative,cxr with improvement , continue abx, dc isolation, f/u pulmonary rec-s DW staff/pt MILLICENT Damon Problems: PARAM LEON NP Jan 01, 2017 14:02
[2017-01-01 14:15] VITALS: BP 102/66; RESP 18
[2017-01-01 19:45] VITALS: BP 103/60; RESP 18
--- NOTE | 2017-01-02 02:10 | PN ---
DATE: 01/01/2017 SUBJECTIVE: Patient is alert and awake, feels well and eating well. She says that she feels better . She has been ambulating. OBJECTIVE: CHEST: Clear to A and P. ABDOMEN: Liver, kidneys, spleen are not palpable. Bowel sounds are normal. There are no intraabdo jorge masses or bruits. HEART: Normal sinus rhythm. EXTREMITIES: No ankle edema. IMAGING: Her chest x-ray now shows marked improvement. Bronchoscopy yesterday revealed no evidence of tumor, was entirely normal except for pneumonia. The patient finally seems to be responding to treatment. VITAL SIGNS: The patient has been afebrile today. Her temperature is 97.9. Blood pressure is 114/7 8, pulse varies from 67 to 80, respiratory rate is 18, pulse ox is 97%, oxygen saturation on room ai r. LABORATORY DATA: White cell count 10,400, hemoglobin 11.7 grams percent, hematocrit 36.5%, platelet count is elevated at 526,000. Differential is normal. Electrolytes: Sodium 142, potassium 5, chl oride 105, carbon dioxide 29, BUN 16, creatinine 0.84, glucose 119, calcium 9.7. PPD skin test is n egative. Chest x-ray shows cardiomegaly, continued perihilar left upper lobe lung mass, interval de crease in patchy left upper lobe infiltrate, interval decrease in patchy left lower lobe infiltrate, mild residual remains, atelectasis of the right lung base. The patient has been removed from isola tion since her TB smears have been negative. The patient is currently taking cefepime and Levaquin. Dictated By: SUSY DILLON/LU Conf#: [id number] DID#: [id number]
[2017-01-02 02:13] VITALS: BP 112/71; RESP 18
[2017-01-02] MEDS: LEVOFLOXACIN 500 MG TAB PO SCH (05:33)
[2017-01-02 08:00] VITALS: BP 129/64; RESP 17
[2017-01-02] MEDS: CEFEPIME 1GM/50 ML (PMX) 50 ML IVPB SCH ×2 (08:25→21:09)
[2017-01-02] MEDS: L ACIDOPHIL/B LACTIS/B LONGUM CAPSULE PO SCH ×2 (08:25→21:09)
[2017-01-02] MEDS: FLUCONAZOLE 200 MG TAB PO SCH (08:25)
[2017-01-02] MEDS: FERROUS SULFATE 60 MG/ML 5ML CUP PO SCH (08:25)
[2017-01-02] MEDS: LEVALBUTEROL (NEB) 0.31 MG/3 ML AMP HHN SCH ×2 (09:57→20:50)
--- NOTE | 2017-01-02 11:14 | CONS ---
Date/Time of Note Date/Time of Note DATE: 01/02/17 TIME: 11:12 Assessment/Plan Assessment/Plan Additional Assessment/Plan Assessment recommendations; 1. Patient admitted with extensive left-sided pneumonia with marked clinical and radiological improvement. Status post bronchoscopy with completely negative findings. Consider discharge on oral combination Levaquin and doxycycline for 1 week. Patient will need to have follow-up chest x-ray done in about 2 weeks time to ensure complete resolution. I did have a discussion with the patient this regarding, she does have a primary care physician that she follows on outpatient basis. Consultation Date/Type/Reason Admit Date/Time Dec 25, 2016 at 00:51 Type of Consultation: Pulmonary 24 HR Interval Summary Free Text/Dictation Patient's condition is stable. Denies any shortness of breath, wheezing, sputum production. Complains of very minimal cough. Denies any fever or chills. General exam; middle-aged woman, awake and alert. Currently in no distress. Exam/Review of Systems Vital Signs Vitals Vital Signs Date Time Temp Pulse Resp B/P Pulse Ox O2 Delivery O2 Flow Rate FiO2 01/02/17 10:00 21 01/02/17 09:58 102 18 94 01/02/17 08:00 97.4 129/64 01/01/17 09:48 2.0 01/01/17 09:41 Nasal Cannula Intake and Output 01/01/17 01/01/17 01/02/17 14:59 22:59 06:59 Intake Total 50 ml 1250 ml 350 ml Balance 50 ml 1250 ml 350 ml Exam HEENT exam; supple neck, no JVD. No lymphadenopathy. Midline trachea. No thyromegaly. Pharynx is clear. Patient has fair dentition. Chest exam; clear to auscultation. S1-S2 audible, no murmurs. Regular rhythm. Abdomen exam; soft, nontender. No organomegaly. Bowel sounds audible. Extremity exam; no peripheral edema. No clubbing. RARE/ENDANGERED SPECIES SPECIALIST exam; no focal deficit. Results Result Diagram: 01/01/17 0451 01/01/17 0451 Medications Medications Current Medications Acetaminophen (Tylenol Tab) 650 mg Q4H PRN PO PAIN AND OR ELEVATED TEMP Last administered on 12/30/16t 23:16; Admin Dose 650 MG; Start 12/25/16 at 19:30 Zolpidem Tartrate (Ambien) 10 mg HS PRN PO INSOMNIA; Start 12/25/16 at 19:30 Magnesium Hydroxide (Milk Of Mag) 30 ml DAILY PRN PO CONSTIPATION; Start 12/25 at 19:30 Promethazine HCl/ Codeine (Phenergan/ Codeine) 5 ml Q4H PRN PO COUGH Last administered on 01/01/17 09:01; Admin Dose 5 ML; Start 12/25/16 at 19:30 Ondansetron HCl (Zofran Inj) 4 mg Q4H PRN IV NAUSEA AND/OR VOMITING Last administered on 12/25/16 20:55; Admin Dose 4 MG; Start 12/25/16 at 20:00 Clonidine 0.1 mg 0.1 mg Q4H PRN NGT SBP>160 or DBP>90 Last administered on 16:12; Admin Dose 0.1 MG; Start 12/26/16 at 16:00 Cefepime HCl (Maxipime 1gm/50 ml (Pmx)) 50 ml @ 100 mls/hr Q12 IVPB Last administered on 01/02/17 08:25; Admin Dose 100 MLS/HR; Start 12/26/16 at 21: 00 Ferrous Sulfate (Feosol Liquid Cup) 150 mg DAILY PO Last administered on 08:25; Admin Dose 150 MG; Start 12/27/16 at 12:30 Fluconazole (Diflucan) 200 mg DAILY PO Last administered on 01/02/17 08:25; Admin Dose 200 MG; Start 12/29/16 at 13:30 Levofloxacin (Levaquin) 500 mg DAILY@06 PO Last administered on 01/02/17 05: 33; Admin Dose 500 MG; Start 12/31/16 at 06:00 Lactobacillus Acidophilus (Florajen3 Capsule) 1 each BID PO Last administered on 01/02/17 08:25; Admin Dose 1 EACH; Start 12/30/16 at 21:00 JOSTIN CURTIS Jan 02, 2017 11:14
[2017-01-02 14:00] VITALS: BP 99/61; RESP 19
--- NOTE | 2017-01-02 14:36 | CONS ---
Date/Time of Note Date/Time of Note DATE: 01/02/17 TIME: 14:34 Consult Date/Type/Reason Admit Date/Time Dec 25, 2016 at 00:51 Type of Consultation: id Objective Vital Signs Date Time Temp Pulse Resp B/P Pulse Ox O2 Delivery O2 Flow Rate FiO2 01/02/17 10:00 21 01/02/17 09:58 102 18 94 01/02/17 08:00 97.4 129/64 01/01/17 09:48 2.0 01/01/17 09:41 Nasal Cannula Intake and Output 01/01/17 01/01/17 01/02/17 15:00 23:00 07:00 Intake Total 50 ml 1250 ml 350 ml Balance 50 ml 1250 ml 350 ml Results/Medications Result Diagram: 01/01/17 0451 01/01/17 0451 Medications Current Medications Acetaminophen (Tylenol Tab) 650 mg Q4H PRN PO PAIN AND OR ELEVATED TEMP Last administered on 12/30/16 23:16; Admin Dose 650 MG; Start 12/25/16 at 19:30 Zolpidem Tartrate (Ambien) 10 mg HS PRN PO INSOMNIA; Start 12/25/16 at 19:30 Magnesium Hydroxide (Milk Of Mag) 30 ml DAILY PRN PO CONSTIPATION; Start 12/25 at 19:30 Promethazine HCl/ Codeine (Phenergan/ Codeine) 5 ml Q4H PRN PO COUGH Last administered on 01/01/17 09:01; Admin Dose 5 ML; Start 12/25/16 at 19:30 Ondansetron HCl (Zofran Inj) 4 mg Q4H PRN IV NAUSEA AND/OR VOMITING Last administered on 12/25/16 20:55; Admin Dose 4 MG; Start 12/25/16 at 20:00 Clonidine 0.1 mg 0.1 mg Q4H PRN NGT SBP>160 or DBP>90 Last administered on 16:12; Admin Dose 0.1 MG; Start 12/26/16 at 16:00 Cefepime HCl (Maxipime 1gm/50 ml (Pmx)) 50 ml @ 100 mls/hr Q12 IVPB Last administered on 01/02/17 08:25; Admin Dose 100 MLS/HR; Start 12/26/16 at 21: 00 Ferrous Sulfate (Feosol Liquid Cup) 150 mg DAILY PO Last administered on 08:25; Admin Dose 150 MG; Start 12/27/16 at 12:30 Fluconazole (Diflucan) 200 mg DAILY PO Last administered on 01/02/17 08:25; Admin Dose 200 MG; Start 12/29/16 at 13:30 Levofloxacin (Levaquin) 500 mg DAILY@06 PO Last administered on 01/02/17 05: 33; Admin Dose 500 MG; Start 12/31/16 at 06:00 Lactobacillus Acidophilus (Florajen3 Capsule) 1 each BID PO Last administered on 01/02/17 08:25; Admin Dose 1 EACH; Start 12/30/16 at 21:00 Assessment/Plan Chief Complaint/Hosp Course Alert, feels good, no fevers Abx: Cefepime, Diflucan, Levaquin GENERAL: The patient is a well-developed, well-nourished female who is alert, responsive, in no acute distress. SKIN: Without generalized rash. HEENT: Within normal limits. NECK: Supple. LYMPH NODES: None palpable. CHEST: Decreased breath sounds at the bases. HEART: Without murmur or gallop. ABDOMEN: Soft and nontender, without organosplenomegaly or masses. EXTREMITIES: Without cyanosis, clubbing, or edema. NEUROLOGICAL: No focal neurological abnormality. Assessment: 1. Extensive L-sided PNA s/p bronchoscopy 2. RA 3. Anemia Plan: Clinically stable, fevers resolved, bld cx negative, continue abx, f/u BAL cx's, pulmonary rec-s DW staff/pt Problems: PARAM LEON NP Jan 02, 2017 14:36
[2017-01-02 19:55] VITALS: BP 91/66; RESP 18
[2017-01-03 02:25] VITALS: BP 101/73; RESP 18
[2017-01-03] MEDS: LEVOFLOXACIN 500 MG TAB PO SCH (05:41)
--- NOTE | 2017-01-03 06:17 | PN ---
DATE: 01/02/2017 SUBJECTIVE: The patient is alert and awake. She feels better. Her cough has decreased. She has h ad no fever today and she feels well. Patient was seen by her net web developer, Dr. Zayas, and he feel s that she can go home tomorrow. He advised that she go home on Levaquin 500 mg a day for 7 more da ys and Doxycycline 100 mg twice a day for 7 more days. She will also be given Lactobacillus for 7 d ays and Diflucan. I will discharge in the morning if okay with Dr. Zayas and with Dr. Vargas. OBJECTIVE: CHEST: Clear to A and P. HEART: Normal sinus rhythm. ABDOMEN: Liver, kidneys, spleen are not palpable. Bowel sounds are normal. The patient is eating well, moving her bowels. EXTREMITIES: No ankle edema. VITAL SIGNS: Temperature varies from 97.4 to 98.7, blood pressure ranges from 91/66 to 129/64, puls e rate from 68 to 102, respiratory rate is 19, pulse ox is 97% oxygen saturation on room air. LABORATORY DATA: Gram stain revealed no organisms seen. Acid fast stain is nothing. Sputum cultur es so far show nothing of any significance other than tg, which is being treated with Diflucan. Chest x-ray revealed marked improvement in her pneumonia. Patient feels well and is ambulating. Will probably discharge her in the morning as described above . Dictated By: SUSY DILLON/LU Conf#: [id number] DID#: [id number]
--- NOTE | 2017-01-03 06:17 | PN ---
DATE: 01/02/2017 SUBJECTIVE: The patient is alert and awake. She feels better. Her cough has decreased. She has h ad no fever today and she feels well. Patient was seen by her logistics research engineer, Dr. Zayas, and he feel s that she can go home tomorrow. He advised that she go home on Levaquin 500 mg a day for 7 more da ys and Doxycycline 100 mg twice a day for 7 more days. She will also be given Lactobacillus for 7 d ays and Diflucan. I will discharge in the morning if okay with Dr. Zayas and with Dr. Vargas. OBJECTIVE: CHEST: Clear to A and P. HEART: Normal sinus rhythm. ABDOMEN: Liver, kidneys, spleen are not palpable. Bowel sounds are normal. The patient is eating well, moving her bowels. EXTREMITIES: No ankle edema. VITAL SIGNS: Temperature varies from 97.4 to 98.7, blood pressure ranges from 91/66 to 129/64, puls e rate from 68 to 102, respiratory rate is 19, pulse ox is 97% oxygen saturation on room air. LABORATORY DATA: Gram stain revealed no organisms seen. Acid fast stain is nothing. Sputum cultur es so far show nothing of any significance other than tg, which is being treated with Diflucan. Chest x-ray revealed marked improvement in her pneumonia. Patient feels well and is ambulating. Will probably discharge her in the morning as described above . Dictated By: SUSY DILLON/LU Conf#: [id number] DID#: [id number]
--- NOTE | 2017-01-03 06:17 | PN ---
DATE: 01/02/2017 SUBJECTIVE: The patient is alert and awake. She feels better. Her cough has decreased. She has h ad no fever today and she feels well. Patient was seen by her appeals reviewer veteran, Dr. Zayas, and he feel s that she can go home tomorrow. He advised that she go home on Levaquin 500 mg a day for 7 more da ys and Doxycycline 100 mg twice a day for 7 more days. She will also be given Lactobacillus for 7 d ays and Diflucan. I will discharge in the morning if okay with Dr. Zayas and with Dr. Vargas. OBJECTIVE: CHEST: Clear to A and P. HEART: Normal sinus rhythm. ABDOMEN: Liver, kidneys, spleen are not palpable. Bowel sounds are normal. The patient is eating well, moving her bowels. EXTREMITIES: No ankle edema. VITAL SIGNS: Temperature varies from 97.4 to 98.7, blood pressure ranges from 91/66 to 129/64, puls e rate from 68 to 102, respiratory rate is 19, pulse ox is 97% oxygen saturation on room air. LABORATORY DATA: Gram stain revealed no organisms seen. Acid fast stain is nothing. Sputum cultur es so far show nothing of any significance other than tg, which is being treated with Diflucan. Chest x-ray revealed marked improvement in her pneumonia. Patient feels well and is ambulating. Will probably discharge her in the morning as described above . Dictated By: SUSY DILLON/LU Conf#: [id number] DID#: [id number]
[2017-01-03 08:00] VITALS: BP 119/65; RESP 19
[2017-01-03] MEDS: CEFEPIME 1GM/50 ML (PMX) 50 ML IVPB SCH ×2 (09:20→20:28)
[2017-01-03] MEDS: FERROUS SULFATE 60 MG/ML 5ML CUP PO SCH (09:24)
[2017-01-03] MEDS: FLUCONAZOLE 200 MG TAB PO SCH (09:24)
[2017-01-03] MEDS: L ACIDOPHIL/B LACTIS/B LONGUM CAPSULE PO SCH ×2 (09:25→20:28)
[2017-01-03] MEDS: LEVALBUTEROL (NEB) 0.31 MG/3 ML AMP HHN SCH ×2 (10:03→19:31)
--- NOTE | 2017-01-03 10:53 | CONS ---
Date/Time of Note Date/Time of Note DATE: 01/03/17 TIME: 10:52 Consult Date/Type/Reason Admit Date/Time Dec 25, 2016 at 00:51 Type of Consultation: Pulmonary Subjective Low-grade temp noted overnight. Otherwise remained stable. Bronchoscopy findings noted. Objective Vital Signs Date Time Temp Pulse Resp B/P Pulse Ox O2 Delivery O2 Flow Rate FiO2 01/03/17 08:00 99.0 70 19 119/65 90 01/02/17 10:00 21 01/01/17 09:48 2.0 01/01/17 09:41 Nasal Cannula Intake and Output 01/02/17 01/02/17 01/03/17 15:00 23:00 07:00 Intake Total 50 ml 1410 ml Balance 50 ml 1410 ml Exam GENERAL: Well-developed lady comfortable at rest no acute distress VITAL SIGNS: per chart NECK: Supple. No JVD or lymphadenopathy. CARDIAC EXAM: S1, S2. No added sounds or murmurs. CHEST: clear bilaterally, No added sounds, rales or wheezes ABDOMEN: Soft, nontender. No guarding or rebound. EXTREMITIES: No cyanosis, clubbing or edema. NEUROLOGIC: Generalized weakness. No focal deficits. Results/Medications Result Diagram: 01/01/17 04501/01/17 045 Medications Current Medications Acetaminophen (Tylenol Tab) 650 mg Q4H PRN PO PAIN AND OR ELEVATED TEMP Last administered on 12/30/16 23:16; Admin Dose 650 MG; Start 12/25/16 at 19:30 Zolpidem Tartrate (Ambien) 10 mg HS PRN PO INSOMNIA; Start 12/25/16 at 19:30 Magnesium Hydroxide (Milk Of Mag) 30 ml DAILY PRN PO CONSTIPATION; Start 12/25 at 19:30 Promethazine HCl/ Codeine (Phenergan/ Codeine) 5 ml Q4H PRN PO COUGH Last administered on 01/01/17 09:01; Admin Dose 5 ML; Start 12/25/16 at 19:30 Ondansetron HCl (Zofran Inj) 4 mg Q4H PRN IV NAUSEA AND/OR VOMITING Last administered on 12/25/16 20:55; Admin Dose 4 MG; Start 12/25/16 at 20:00 Clonidine 0.1 mg 0.1 mg Q4H PRN NGT SBP>160 or DBP>90 Last administered on 16:12; Admin Dose 0.1 MG; Start 12/26/16 at 16:00 Cefepime HCl (Maxipime 1gm/50 ml (Pmx)) 50 ml @ 100 mls/hr Q12 IVPB Last administered on 01/03/17 09:20; Admin Dose 100 MLS/HR; Start 12/26/16 at 21: 00 Ferrous Sulfate (Feosol Liquid Cup) 150 mg DAILY PO Last administered on 09:24; Admin Dose 150 MG; Start 12/27/16 at 12:30 Fluconazole (Diflucan) 200 mg DAILY PO Last administered on 01/03/17 09:24; Admin Dose 200 MG; Start 12/29/16 at 13:30 Levofloxacin (Levaquin) 500 mg DAILY@06 PO Last administered on 01/03/17 05: 41; Admin Dose 500 MG; Start 12/31/16 at 06:00 Lactobacillus Acidophilus (Florajen3 Capsule) 1 each BID PO Last administered on 01/03/17 09:25; Admin Dose 1 EACH; Start 12/30/16 at 21:00 Assessment/Plan Chief Complaint/Hosp Course IMPRESSION AND PLAN: 1. Left upper lobe lesion and left-sided infiltrate. Status post bronchoscopy with no endobronchial lesions noted. Radiographic and clinical improvement. 2. Complete p.o. Levaquin 3. Discharge planning okay from primary standpoint outpatient CT scan in 1 month's time to ensure complete resolution. Can follow in office if needed. Problems: AJ CORONEL MD, [facility] Jan 03, 2017 10:53
[2017-01-03 14:00] VITALS: BP 108/63; RESP 20
[2017-01-03 20:00] VITALS: BP 108/60; RESP 20
[2017-01-04 02:00] VITALS: BP 123/76; RESP 20
--- NOTE | 2017-01-04 03:22 | PN ---
DATE: 01/03/2017 SUBJECTIVE: The patient is feeling well without complaints. No shortness of breath, no chest pain. OBJECTIVE: VITAL SIGNS: Maximum temperature 99.6, most recently 99.1, pulse 102, respirations 18, blood pressu re 108/63, oxygen saturation 97% on room air. At its lowest point, oxygen was 90% earlier this morn ing. GENERAL: Well-developed, well-nourished female in no acute distress, lying in bed. CHEST: Decreased breath sounds, left greater than right with rhonchi, no crackles. HEART: Tachycardic, regular. ABDOMEN: Soft, nontender. EXTREMITIES: No cyanosis, clubbing or edema. LABORATORY DATA: There are no blood tests, last blood test was 01/01/2017. ASSESSMENT AND PLAN: Pneumonia. Patient remains in the hospital today as patient spiked temperatur e again. If the patient's temperature remains stable and recheck white blood cell count tomorrow, a nd if it is normal, the patient should be stable for discharge home on p.o. antibiotics. We will co ntinue current treatment plan for now, and continue to monitor the patient as an inpatient. Dischar ge plans as above as the patient remains stable. The patient will be discharged home on p.o. antibi otics with followup with Dr. Hughes. Dictated By: YAIMA NOYOLA MD SR/NTS Conf#: [id number] DID#: [id number] CC: SUSY HUGHES MD;*EndCC*
[2017-01-04] MEDS: LEVOFLOXACIN 500 MG TAB PO SCH (05:24)
[2017-01-04 08:00] VITALS: BP 109/62; RESP 19
--- NOTE | 2017-01-04 08:15 | PDOCDIS ---
Discharge Instructions DIAGNOSIS Discharge Diagnosis Pneumonia CONDITION Patient Condition: Good HOME CARE INSTRUCTIONS: Diet Instructions: RegularSpecial Diet: regular ACTIVITY: Activity Restrictions: No Restrictions FOLLOW UP/APPOINTMENTS Follow-up Plan Patient should call Dr. Mayfield's office on Friday 01/05 to schedule appt in the next week SCHOOL/WORK RELEASE May return to School/Work on: Jan 12, 2017 YAIMA NOYOLA MD- Jan 04, 2017 08:15
[2017-01-04] MEDS ORDERED: LEVO500T72 PO (08:17)
[2017-01-04] MEDS ORDERED: DOXY-220 PO (08:17)
[2017-01-04] MEDS: FERROUS SULFATE 60 MG/ML 5ML CUP PO SCH (08:19)
[2017-01-04] MEDS: PROMETHAZINE/CODEINE 5ML CUP PO PRN (08:19)
[2017-01-04] MEDS: CEFEPIME 1GM/50 ML (PMX) 50 ML IVPB SCH (08:19)
[2017-01-04] MEDS: FLUCONAZOLE 200 MG TAB PO SCH (08:19)
[2017-01-04] MEDS: L ACIDOPHIL/B LACTIS/B LONGUM CAPSULE PO SCH (08:22)
[2017-01-04] MEDS: LEVALBUTEROL (NEB) 0.31 MG/3 ML AMP HHN SCH (09:00)
--- NOTE | 2017-01-04 13:49 | PN ---
DATE: 01/04/2017 SUBJECTIVE: Patient is feeling well, no complaints. Mild cough and some weakness, but the patient wants to go home. OBJECTIVE VITAL SIGNS: Afebrile. Vital signs stable, oxygen saturation 97% on room air. GENERAL: Well-developed, well-nourished female in no acute distress, sitting up in bed. CHEST: Decreased breath sounds with slight rhonchi, left greater than right. HEART: Regular rate and rhythm. ABDOMEN: Soft, nontender. NEUROLOGIC: Nonfocal. LABORATORY DATA: Sodium 137, potassium 4.5, chloride 103, bicarbonate 25, BUN of 20, creatinine 0.9 , calcium 8.7, glucose of 96. White blood cell count 11.7 with no left shift or bandemia, hemoglobi n 11.8, hematocrit 35.6, platelets of 528. ASSESSMENT AND PLAN: 1. Pneumonia. Patient is stable for discharge to home on Levaquin and doxycycline for an additiona l 9 days. The patient has completed her fluconazole 7 days and does not need any further fluconazol e. We will have the patient follow up with Dr. Mayfield this week for further from the hospital and she should call for an appointment. 2. Rheumatoid arthritis. The patient will continue with her weekly methotrexate as usual. DISCHARGE MEDICATIONS: 1. Methotrexate, weekly. 2. Levofloxacin 500 mg daily. 3. Doxycycline 100 mg b.i.d. DISCHARGE PLANS: The patient will follow up with Dr. Mayfield and call for an appointment this week . Dictated By: YAIMA NOYOLA MD, SR/LU Conf#: [id number] DID#: [id number]
== END 2017-01-04 10:19 | disposition home or self-care (01) | DRG 168 ==
LOC: E/R 18:04 → PP2 12-25 00:51
PROC: 0B9G8ZX Drainage of Left Upper Lung Lobe, Via Natural or Artificial Opening Endoscopic, Diagnostic (ICD-10-PCS; principal; 2016-12-31 12:00)
DX: J18.9 Pneumonia, unspecified organism (principal); D64.9 Anemia, unspecified; M06.9 Rheumatoid arthritis, unspecified; N60.12 Diffuse cystic mastopathy of left breast; N60.11 Diffuse cystic mastopathy of right breast; R07.89 Other chest pain
CPT/HCPCS: 36415; 71010; 71250; 80048; 80053; 80061; 81003; 82270; 82607; 82728; 83540; 83735; 84100; 84155; 84165; 84443; 85025; 85045; 85049; 85610; 85651; 85670; 85730; 86580; 86635; 87040; 87045; 87070; 87075; 87081; 87086; 87102; 87116; 87177; 93005; 93306; 94640; 94664; 96374; 96375; J0456; J0692; J0696; J1100; J2250; J2405; J3010; J7030

== ENCOUNTER → 2017-04-17 | Outpatient (CLI) | END | disposition home or self-care (01) ==